=== PATIENT | female | born 1980 | race Caucasian/White ===

== ENCOUNTER 2019-11-08 07:00 | Emergency (ER) | payer OTHER, SELFPAY ==
--- NOTE | ~2019-11-08 | CT_ITS ---
EXAMINATION: CT abdomen pelvis w con DATE: 11/08/2019 08:38 INDICATION: Left lower abdominal pain TECHNIQUE: Computed tomography (CT) of the abdomen and pelvis was performed with 100 cc Omnipaque 350 intravenous contrast. Automated exposure control and iterative reconstruction technique were employe d. Exam dose: 366.56 mGy-cm total exam DLP. COMPARISON: None. FINDINGS: No infiltrate or consolidation or mass density is evident in the lower lung zones. Normal h eart size. No pericardial or pleural effusion. The liver, gallbladder, bile ducts, spleen, pancreas and pancreatic duct are unremarkable. Normal mor phology of the adrenal glands. No renal mass lesion or urinary tract calculus or hydroureteronephrosis. The urinary bladder is unrem arkable. 2.4 cm left ovarian cyst. The uterus measures up to 11.2 cm height, 5.2 cm maximal AP dimension. 2.5 cm calcified anterolateral right fundic uterine fibroid. Smaller fibroids are suggested. An IUD is noted within the uterus. There is pericolic fat stranding along virtually the entire course of the descending colon with assoc iated thickening of the adjacent lateral conal fascia. Epiploic appendagitis is suggested. Differenti al diagnosis includes most likely infectious or inflammatory colitis versus diverticulitis; however, no definite diverticula are demonstrated. The appendix is not visualized; there is no CT evidence of appendicitis. Normal caliber of the abdominal aorta. No intraperitoneal or retroperitoneal or pelvic mass lesion or adenopathy or ascites. Very small fat-containing umbilical hernia. Included skeletal structures are unremarkable. IMPRESSION: Epiploic appendagitis of descending colon is suggested; this is usually a self limited a nd resolved spontaneously. Differential diagnosis is given above. Uterine fibroids; IUD within uterus 2.5 cm left ovarian cyst Reviewed, dictated and finalized at [facility]. Reviewed, dictated and finalized at [facility]. IMPRESSION: Epiploic appendagitis of descending colon is suggested; this is us ually a self limited and resolved spontaneously. Differential diagnosis is give n above. Uterine fibroids; IUD within uterus 2.5 cm left ovarian cyst
[2019-11-08 07:07] VITALS: BP 120/58; PULSE 97; RESP 18; TEMP 36.8; O2SAT 98
--- NOTE | 2019-11-08 07:15 | ED.ABDPAIN ---
HPI - Abdominal Pain General Chief Complaint: Abdominal Pain Stated Complaint: left flank pain Time Seen by Provider: 11/08/19 07:06 Source: patient Mode of arrival: ambulatory Limitations: no limitations History of Present Illness HPI narrative: This patient is a 38 year old female who presents for evaluation of left lower abdominal pain starting yesterday. This pain has been constant and it is worse when she walks or moves. She has associated nausea and bloating. She also reports increase in bowel movements since her pain. She rates pain 6/10. She denies taking any medication for her pain. MD elicited complaint: abdominal pain Onset (ago): day(s) (1) Pain Consistency: constant Location: LLQ Radiation: none Migration to: no migration Relieving factors: movement Related Data Allergies Allergy/AdvReac Type Severity Reaction Status Date / Time No Known Allergies Allergy Verified 11/08/19 07:15 Review of Systems Review of Systems: All systems reviewed & are unremarkable except as noted in HPI and below Constitutional: Constitutional: Denies chills and Denies fever(s) Gastrointestinal: Gastrointestinal: Reports abdominal pain, Reports bloating, Reports nausea and Denies vomiting Genitourinary: Genitourinary: Denies hematuria, Denies nocturia, Denies dysuria and Denies flank pain Musculoskeletal: Musculoskeletal: Denies back pain PMFSH Past Medical History Medical History Chronic pain IUD (intrauterine device) in place Surgical History Surgical History (Updated 11/08/19 @ 07:16 by Aubrie Fuentes MD) H/O shoulder surgery Hx of appendectomy Social History Social History (Updated 11/08/19 @ 07:16 by Aubrie Fuentes MD) Smoking status: Never smoker Exam Narrative: Exam Narrative: GENERAL: Well-appearing, well-nourished, and in no acute distress. HEAD: Normocephalic, atraumatic EYES: PERRLA and EOMI, conjunctiva clear without discharge THROAT:Mucous membranes moist NECK: Supple, RESPIRATORY: No respiratory distress, Airway patent, Respirations non-labored, Clear to auscultation without rales, rhonchi or wheeze HEART: Regular rate and rhythm. No murmur heard. Normal peripheral pulses. ABDOMEN: Soft, LLQ tenderness, nondistended, normal active bowel sounds. No masses. No rebound or guarding, No organomegaly. EXTREMITIES: No edema, normal strength with full range of motion. SKIN: Warm, dry, normal color without rash NEURO: Alert and oriented x3. CN 2-12 grossly intact. No focal deficits. PSYCH: Normal mood and affect. Course Reevaluation(s) Reevaluation #1: I have discussed with patient that labs were unremarkable other than abnormal UA. She has no urinary symptoms and there are many squamous. Patient reported frequent formed bowel movements so I think it is unlikely colitis. Her pain may be due to ovarian cyst, epiploic appendagitis or diverticulitis. I have discussed I will given referral to new PCP and [facility] [employer]. She will be started on antibiotics. Date: 11/08/19 Time: 09:06 Vital Signs Vital signs: Vital Signs Temperature 98.2 F 11/08/19 07:07 Pulse Rate 97 11/08/19 07:07 Respiratory Rate 18 11/08/19 07:07 Blood Pressure 120/58 L 11/08/19 07:07 Pulse Oximetry 98 11/08/19 07:07 Temperature 98.2 F 11/08/19 07:07 Pulse Rate 70 11/08/19 09:22 Respiratory Rate 18 11/08/19 09:22 Blood Pressure 123/78 11/08/19 09:22 Pulse Oximetry 99 11/08/19 09:22 MDM - Abdominal Pain Lab Data Attestation: I reviewed the patient's lab results. Result diagrams: 11/08/19 07:24 11/08/19 07:24 Labs: Lab Results 11/08/19 11/08/19 11/08/19 Range/Units 07:24 07:24 07:24 WBC 7.9 (4.5-10.0) K/mm3 RBC 4.30 (4.2-5.4) M/mm3 Hgb 14.0 (12.0-15.0) g/dL Hct 39.9 (37.0-47.0) % MCV 92.8 (80-100) fl MCH 32.6 (26-34) pg MCHC 35.1 (32-36) g/dl RDW 12.4 (11.5-14.5) % Plt Count 202 (150-375) k/m
[2019-11-08] MEDS: LACTATED RINGERS 1,000 ML 999 ML IV CONT (07:26)
[2019-11-08] MEDS: ONDANSETRON INJ 4 MG/2 ML VIAL IV PUSH (07:27)
[2019-11-08 07:37] LABS: Basophils Percent Auto 0.4 % (0.2-1.2); Eosinophils Absolute Auto 0.2 K/mm3 (0-0.3); Eosinophils Percent Auto 3.1 % (0-4.4); Hematocrit 39.9 % (37.0-47.0); Immature Granulocyte Absolute 0.02 K/mm3 (0.00-0.031); Immature Granulocyte Percent A 0.3 % (0-0.5); Lymphocytes Absolute Auto 1.96 K/mm3 (0.9-3.2); Lymphocytes Percent Auto 24.9 % (18.3-44.2); Mean Corpuscular HGB Conc 35.1 g/dl (32-36); Mean Corpuscular Hemoglobin 32.6 pg (26-34); Mean Corpuscular Volume 92.8 fl (80-100); Mean Platelet Volume 12.2 fl (7.4-10.4); Monocytes Absolute Auto 0.6 K/mm3 (0.1-0.6); Monocytes Percent Auto 8.1 % (2.6-8.5); Neutrophils Percent Auto 63.2 % (45.5-73.1); Platelet Count Result 202 k/mm3 (150-375); Red Cell Distribution Width 12.4 % (11.5-14.5); White Blood Count 7.9 K/mm3 (4.5-10.0)
[2019-11-08 07:41] LABS: Add Urine Microscopic? YES; Appearance Urine Clear (Clear); Bacteria Urine Trace /hpf; Bilirubin Urine Negative (Negative); Blood Urine 1+ (Negative); Color Urine Yellow (Yellow); Glucose Urine UA Negative (Negative); Ketones Urine Negative (Negative); Leukocyte Esterase Ur 3+ LEU/UL (Negative); Nitrate Urine Negative (Negative); Protein Urine Negative (Negative); Specific Grav Ur 1.015 (1.001-1.035); Squamous Epithelial Cell Urine Many /hpf (Few); Urobilinogen Urine Negative mg/dL (<2.0); WBC Urine 31-50 /hpf
[2019-11-08 08:07] LABS: Alanine Aminotransferase 7 U/L (4-35); Albumin Level 4.1 g/dL (3.5-5.1); Alkaline Phosphatase 50 U/L (38-126); Anion Gap 10.7 mmol/L (7-16); Aspartate Amino Transferase 14 U/L (14-36); Bilirubin,Total 0.5 mg/dL (0.2-1.3); Blood Urea Nitrogen 11 mg/dL (7-17); Calcium 8.7 mg/dL (8.4-10.2); Carbon Dioxide 24 mmol/L (22-30); Chloride 107 mmol/L (98-107); Estimated CRCL calculation 59 ml/min; Estimated Glomerular Filt Rate > 60; Glucose 100 mg/dL (65-105); Lipase 112 U/L (23-300); Potassium 3.7 mmol/L (3.4-5.0); Sodium 138 mmol/L (137-145)
[2019-11-08 09:22] VITALS: BP 123/78; PULSE 70; RESP 18; O2SAT 99
== END 2019-11-08 09:24 | disposition home or self-care (01) ==
PROVIDERS: Emergency Provider General Practice
DX: N83.202 Unspecified ovarian cyst, left side (principal); D25.9 Leiomyoma of uterus, unspecified; K63.89 Other specified diseases of intestine; R82.998 Other abnormal findings in urine; Z97.5 Presence of (intrauterine) contraceptive device
CPT/HCPCS: 36415; 74177; 80053; 81001; 81025; 83690; 85025; 87086; 96361; 96374; 96375; 99284; J0131; J2405; J7120; Q9967

== ENCOUNTER 2020-01-28 00:34 | Outpatient (CLI) | payer OTHER, SELFPAY ==
[2020-01-28 18:39] LABS: SARS-CoV-2 RNA PCR Negative
== END 2020-01-28 00:35 | disposition home or self-care (01) ==
LOC: ANHCOVIDDT 00:34
PROVIDERS: PCP Family Medicine; Visit Provider Internal Medicine Gastroenterology
DX: Z01.812 Encounter for preprocedural laboratory examination (principal); Z20.828 Contact with and (suspected) exposure to other viral communicable diseases
CPT/HCPCS: 87635; C9803; U0003

== ENCOUNTER 2020-01-30 00:58 | Day surgery (SDC) | payer OTHER, SELFPAY ==
[2020-01-15 15:08] VITALS: BMI 24.8
[2020-01-30 09:20] VITALS: BP 119/60; PULSE 83; RESP 16; TEMP 36.7; O2SAT 99
[2020-01-30] MEDS: LACTATED RINGERS 1,000 ML 150 ML IV CONT (09:27)
--- NOTE | 2020-01-30 09:50 | WPDGICN ---
Assessment and Plan Assessment and plan (1) Abdominal pain: Code(s): R10.9 - Unspecified abdominal pain Status: Acute Assessment and Plan: Patient with persistent left lower quadrant abdominal pain. Clinically suspicious for diverticulitis. CT scan suggest epiploic appendagitis. No response to empiric antibiotics. Because of ongoing pain a colonoscopy will be performed high-fiber diet is advised further recommendations will be given after endoscopy. GI Consult Note Consult date/time: 01/30/20 09:50 HPI: Alena Bonilla is a 39 year old female Seen at the request of Dr Parul Ng. patient complains of pain that began in September of 2019 and has persisted over last 3 months. Pain is Prieb Jay it leave the left lower quadrant of the abdomen. She initially went to the emergency room was treated empirically with antibiotics. She currently complains of some fecal urgency with loose stools. A CT scan of the abdomen was performed which revealed possible epiploic appendagitis. She does have an ovarian cyst but this on the right side. Her family history is noncontributory she denies any blood in her stools. Her pain has persisted but improved gradually. After being seen in the office was treated with Cipro for 1 week with no specific change in symptoms. Review of Systems Review of Systems: All systems reviewed & are unremarkable except as noted in HPI and below PMFSH Past Medical History Medical History Chronic pain Healthy adult IUD (intrauterine device) in place Surgical History Surgical History H/O shoulder surgery Hx of appendectomy Social History Social History Smoking status: Never smoker Alcohol intake: never Substance use: never Substance use type: does not use Living arrangements: with family Spiritual care concerns: No Meds Home Medications and Allergies Home Medications Medication Instructions Recorded Confirmed Type ciprofloxacin 500 mg PO BID 01/16/20 01/16/20 History Allergies Allergy/AdvReac Type Severity Reaction Status Date / Time No Known Allergies Allergy Verified 01/16/20 14:41 Vital Signs Vital Signs - 24 hr 01/30/20 09:20 Temperature 98.0 F Pulse Rate 83 Respiratory Rate 16 Blood Pressure 119/60 Pulse Oximetry 99 Exam Narrative: Exam Narrative: Physical exam reveals patient to be alert. Vital signs stable. HEENT exam unremarkable. Lungs are clear to auscultation and percussion. Heart is without murmur or extra sounds. Abdominal exam bowel sounds present soft mild tenderness in left lower quadrant persists. Digital external rectal exam normal. No masses noted.
--- NOTE | 2020-01-30 09:51 | WPDANESEPPF ---
Anes - Initial Pre Proc Eval Procedure: Operation Date: 01/30/20 10:30 Proposed Procedures p Colonoscopy - German Becerril MD Date/Time: 01/30/20 09:51 Surgeon: German Becerril MD Pre Op Diagnosis: LLQ pain Patient Data Age: 39 Gender: F Height: 5 ft 3 in Weight: 64 kg Last Vital Signs Temp 98.0 F 01/30/20 09:20 Pulse 83 01/30/20 09:20 Resp 16 01/30/20 09:20 BP 119/60 01/30/20 09:20 Pulse Ox 99 01/30/20 09:20 Allergies Allergy/AdvReac Type Severity Reaction Status Date / Time No Known Allergies Allergy Verified 01/16/20 14:41 Home Medications Medication Instructions Recorded Confirmed Type ciprofloxacin 500 mg PO BID 01/16/20 01/16/20 History Patient hx anesthesia problems: none Family hx anesthesia problems: none PMFSH Past Medical History Medical History Chronic pain Healthy adult IUD (intrauterine device) in place Surgical History Surgical History H/O shoulder surgery Hx of appendectomy Social History Social History Smoking status: Never smoker Alcohol intake: never Substance use: never Substance use type: does not use Living arrangements: with family Spiritual care concerns: No Anes - Eval Final PreProcedure Day of Procedure 01/30/20 09:51 Patient weight: normal Heart: regular rate and rhythm Lungs: clear to auscultation Airway: Mallampati scale class II Neurological: alert and oriented Last oral intake: >/= 8 hours ASA classification: I Emergent: no Anesthetic plan: proceed Anesthesia type and monitoring: general GIVS and standard monitoring Informed Consent: The patient's anesthetic plan and its attendant risks and benefits were discussed with the patient/family/POA. Questions were solicited and answers provided to the satisfaction of the patient/family/POA.
[2020-01-30 10:40] VITALS: BP 84/45; PULSE 82; RESP 16; O2SAT 97
[2020-01-30 10:50] VITALS: BP 87/50; PULSE 74; RESP 16; O2SAT 97
[2020-01-30 11:00] VITALS: BP 104/70; PULSE 76; RESP 16; O2SAT 97
== END 2020-01-30 11:27 | disposition home or self-care (01) ==
PROVIDERS: PCP Family Medicine; Visit Provider Internal Medicine Gastroenterology
PROC: 0DJD8ZZ Inspection of Lower Intestinal Tract, Via Natural or Artificial Opening Endoscopic (ICD-10-PCS; CPT 45378; principal; 2020-01-30 10:30)
DX: R10.12 Left upper quadrant pain (principal); K64.8 Other hemorrhoids
CPT/HCPCS: 45378; J2704; J7120

== ENCOUNTER 2021-03-17 11:03 | Emergency (ER) | payer OTHER, SELFPAY ==
[2021-03-17] VITALS (12 sets, daily range): BP systolic 114–133; BP diastolic 67–85; PULSE 64–88; RESP 12–17; O2SAT 98–100
--- NOTE | ~2021-03-17 | CT_ITS ---
EXAMINATION: CT abdomen pelvis w con EXAM DATE: 03/17/2021 16:30 INDICATION: Abdominal pain, right lower quadrant pain for one week. Bloating and cramps. TECHNIQUE: Spiral CT of the abdomen and pelvis was performed following intravenous injection of 100 m L Omnipaque 350. Axial, coronal and sagittal images of the abdomen and pelvis were reviewed. The do se-length product (DLP) for this examination was 247.08 mGy-cm. The exposure was tailored according to patient size (auto mA exposure control), and iterative reconstruction (ASIR) was used as additiona l dose reduction technique. Comparison is made to prior examination from 11/08/2019. FINDINGS: The liver, spleen, adrenal glands and pancreas are unremarkable. Gallbladder is unremarkab le. No biliary obstruction. Portal and splenic veins are patent. Kidneys enhance symmetrically. T here is no hydronephrosis. Uterus is anteverted with IUD centrally positioned. Peripherally calcified low density centrally partially exophytic fibroid measuring 2.7 cm. The bladder is unremarkable. Th ere is no retroperitoneal or pelvic lymphadenopathy. The appendix is not positively visualized. There is no pericecal inflammatory change to suggest appe ndicitis. The stomach and small bowel are unremarkable. There is expected amount of colonic stool. No free intraperitoneal gas. The heart is normal in size. There are no pericardial or pleural e ffusions. The lung bases are unremarkable. The bones are unremarkable. IMPRESSION: 1. Fibroid uterus. 2. No acute findings Reviewed, dictated and finalized at [facility]. PPER
[2021-03-17] MEDS: SODIUM CHLORIDE 0.9% IV 1,000 ML 999 ML IV CONT (14:49)
--- NOTE | 2021-03-17 15:08 | ED.ABDPAIN ---
HPI - Abdominal Pain General Chief Complaint: Abdominal Pain <Joselyn Ruiz MD - Last Filed: 03/17/21 16:33> Stated Complaint: pain from fibroids <Joselyn Ruiz MD - Last Filed: 03/17/21 16:33> Time Seen by Provider: 03/17/21 14:10 <Joselyn Ruiz MD - Last Filed: 03/17/21 16:33> Source: patient and RN notes reviewed <Joselyn Ruiz MD - Last Filed: 03/17/21 16:33> Mode of arrival: ambulatory <Joselyn Ruiz MD - Last Filed: 03/17/21 16:33> Limitations: no limitations <Joselyn Ruiz MD - Last Filed: 03/17/21 16:33> History of Present Illness HPI narrative: Patient presents with right lower back pain radiating to right lower quadrant that started 1 month ago, got worse over the last 2 weeks, radiating to the back of the buttock and right thigh. Patient denies any trauma, fever, chills, nausea, vomiting, diarrhea, constipation, vaginal bleeding or discharge. Patient was seen at urgent care last week and was diagnosed of uterine fibroid. Patient have IUD, denies smoking, drinking or using drugs. Pain worse when she bends over, little better with warm compresses on the lower back and 800 mg of ibuprofen. History of rotator cuff surgery after injury 2 years ago <Joselyn Ruiz MD - Last Filed: 03/17/21 16:33> Related Data Home Medications: Home Medications Medication Instructions Recorded Confirmed ibuprofen 800 mg PO TID PRN 03/17/21 <Joselyn Ruiz MD - Last Filed: 03/17/21 16:33> Allergies/Adverse Reactions: Allergies Allergy/AdvReac Type Severity Reaction Status Date / Time No Known Allergies Allergy Verified 03/17/21 14:15 <Joselyn Ruiz MD - Last Filed: 03/17/21 16:33> Review of Systems Review of Systems: CONSTITUTIONAL: Denies fever, chills, or sweats. EYES: Denies visual changes, redness, or discharge. ENT: Denies rhinorrhea, congestion, sore throat, or otalgia. CARDIOVASCULAR: Denies chest pain, palpitations, or edema. RESPIRATORY: Denies cough or dyspnea. GASTROINTESTINAL: Denies abdominal pain, nausea, vomiting, or diarrhea. GENITOURINARY: Denies dysuria or hematuria. SKIN: Denies rash or itching. MUSCULOSKELETAL: Right lower back pain NEUROLOGIC: Denies headache, numbness, or weakness. PSYCHIATRIC: Denies anxiety or depression. <Joselyn Ruiz MD - Last Filed: 03/17/21 16:33> [facility] Past Medical History Medical History: Medical History Chronic pain Healthy adult IUD (intrauterine device) in place <Joselyn Ruiz MD - Last Filed: 03/17/21 16:33> Surgical History Surgical History: Surgical History H/O shoulder surgery Hx of appendectomy <Joselyn Ruiz MD - Last Filed: 03/17/21 16:33> Social History Social History: Social History Smoking status: Never smoker Alcohol intake: never Substance use: never Substance use type: does not use Spiritual care concerns: No <Joselyn Ruiz MD - Last Filed: 03/17/21 16:33> Exam Narrative: General appearance: Well-developed, well-nourished Skin: Normal color Head: Normocephalic, nontraumatic Eyes: Clear conjunctiva ENT: Oropharynx normal, ears normal, nose normal Neck: Supple, nontender Chest and respiratory: Airway patent, no respiratory distress, no accessory muscle use Heart: Regular rate/rhythm Abdomen: Moderate tenderness right lower quadrant, quiet bowel sounds, no mass or organomegaly Vascular: Normal peripheral pulses, normal capillary refill. Musculoskeletal: Normal range of motion, nontender back, mild tenderness mid lower back and right buttock with palpation, no bruises, no swelling, no rash Neurologic: Alert and oriented ?3, TENA[employer] is normal as tested, no gross motor deficit. Right straight leg raising test is negative
[2021-03-17 15:17] LABS: Basophils Percent Auto 0.4 % (0.2-1.2); Eosinophils Absolute Auto 0.2 K/mm3 (0-0.3); Eosinophils Percent Auto 2.3 % (0-4.4); Hematocrit 41.9 % (37.0-47.0); Hemoglobin 14.4 g/dL (12.0-15.0); Immature Granulocyte Absolute 0.02 K/mm3 (0.00-0.031); Immature Granulocyte Percent A 0.3 % (0-0.5); Lymphocytes Absolute Auto 2.51 K/mm3 (0.9-3.2); Lymphocytes Percent Auto 34.5 % (18.3-44.2); Mean Corpuscular HGB Conc 34.4 g/dl (32-36); Mean Corpuscular Hemoglobin 32.7 pg (26-34); Mean Platelet Volume 11.8 fl (7.4-10.4); Monocytes Absolute Auto 0.5 K/mm3 (0.1-0.6); Monocytes Percent Auto 7.4 % (2.6-8.5); Neutrophils Percent Auto 55.1 % (45.5-73.1); Platelet Count Result 190 k/mm3 (150-375); Red Blood Count 4.41 M/mm3 (4.2-5.4); Red Cell Distribution Width 11.9 % (11.5-14.5); White Blood Count 7.3 K/mm3 (4.5-10.0)
[2021-03-17 15:23] LABS: Add Urine Microscopic? YES; Appearance Urine Clear (Clear); Bilirubin Urine Negative (Negative); Blood Urine Negative (Negative); Color Urine Yellow (Yellow); Glucose Urine UA Negative (Negative); Ketones Urine Negative (Negative); Leukocyte Esterase Ur 1+ LEU/UL (Negative); Mucus Urine Rare /lpf; Nitrate Urine Negative (Negative); Protein Urine Negative (Negative); Specific Grav Ur 1.021 (1.001-1.035); Squamous Epithelial Cell Urine Few /hpf (Few); Urobilinogen Urine Negative mg/dL (<2.0); WBC Urine 0-3 /hpf
[2021-03-17 15:37] LABS: Alanine Aminotransferase 9 U/L (4-35); Albumin Level 4.6 g/dL (3.5-5.1); Alkaline Phosphatase 47 U/L (38-126); Anion Gap 8 mmol/L (8-16); Aspartate Amino Transferase 17 U/L (14-36); Bilirubin,Total 0.8 mg/dL (0.2-1.3); Blood Urea Nitrogen 12 mg/dL (7-17); Calcium 9.5 mg/dL (8.4-10.2); Carbon Dioxide 24 mmol/L (22-30); Chloride 105 mmol/L (98-107); Estimated CRCL calculation 55 ml/min; Estimated Glomerular Filt Rate > 60; Glucose 89 mg/dL (65-110); Lactic Acid Reflex 0.7 mmol/L (0.7-2.1); Lipase 100 U/L (23-300); Potassium 3.7 mmol/L (3.4-5.0); Sodium 137 mmol/L (137-145)
[2021-03-17] MEDS: HYDROmorphone HCL INJ (*CRX) 1 MG/ML SYR 0.5 MG IV PUSH (16:04)
[2021-03-17] MEDS: ONDANSETRON INJ 4 MG/2 ML VIAL IV PUSH (16:05)
== END 2021-03-17 17:30 | disposition home or self-care (01) ==
PROVIDERS: Emergency Medicine; Emergency Provider Emergency Medicine
DX: R10.9 Unspecified abdominal pain (principal); D25.9 Leiomyoma of uterus, unspecified; G89.29 Other chronic pain; Z97.5 Presence of (intrauterine) contraceptive device; Z90.89 Acquired absence of other organs
CPT/HCPCS: 36415; 74177; 80053; 81001; 81025; 83605; 83690; 85025; 96361; 96374; 96375; 99284; J1170; J2405; J7030; Q9967

== ENCOUNTER 2021-09-26 15:29 | Emergency (ER) | payer OTHER, SELFPAY ==
--- NOTE | ~2021-09-26 | CT_ITS ---
EXAMINATION: CT abdomen pelvis wo con DATE: 09/26/2021 16:42 INDICATION: abdomina pain TECHNIQUE: Computed tomography (CT) of the abdomen and pelvis was performed without intravenous contr ast. Automated exposure control and iterative reconstruction technique were employed. The dose-length product was 236.85 mGy-cm. COMPARISON: 03/17/2021 FINDINGS: Lower thorax: Unremarkable Liver: Normal. Biliary/Gallbladder: Gallbladder is normal. No bile duct dilation. Pancreas: No mass or duct dilation. Spleen: Normal. Adrenals:No mass. Kidneys: No mass, stone, or hydronephrosis. GI tract: No small or large bowel dilation. The appendix not visualized. Mesentery/Peritoneum: No ascites, mass, or free air. Retroperitoneum: No mass. Pelvis: Calcified uterine fibroids, otherwise pelvic organs are within normal limits. Soft Tissues: Soft tissues and body wall unremarkable. Bones: No acute osseous finding. IMPRESSION: No acute abdominopelvic process detected. Reviewed, dictated and finalized at [facility].
[2021-09-26 15:31] VITALS: BP 137/82; PULSE 86; RESP 20; TEMP 36.8; O2SAT 98
[2021-09-26 15:40] LABS: Basophils Percent Auto 0.3 % (0.2-1.2); Eosinophils Absolute Auto 0.1 K/mm3 (0-0.3); Eosinophils Percent Auto 2.3 % (0-4.4); Hemoglobin 12.9 g/dL (12.0-15.0); Immature Granulocyte Absolute 0.02 K/mm3 (0.00-0.031); Immature Granulocyte Percent A 0.3 % (0-0.5); Lymphocytes Absolute Auto 1.94 K/mm3 (0.9-3.2); Lymphocytes Percent Auto 32.4 % (18.3-44.2); Mean Corpuscular HGB Conc 35.8 g/dl (32-36); Mean Corpuscular Hemoglobin 32.3 pg (26-34); Mean Platelet Volume 11.4 fl (7.4-10.4); Monocytes Absolute Auto 0.6 K/mm3 (0.1-0.6); Monocytes Percent Auto 9.4 % (2.6-8.5); Neutrophils Absolute Auto 3.3 K/mm3 (1.3-6.7); Neutrophils Percent Auto 55.3 % (45.5-73.1); Platelet Count Result 204 k/mm3 (150-375); Red Cell Distribution Width 12.4 % (11.5-14.5)
[2021-09-26 15:45] LABS: Appearance Urine Slightly Cloudy (Clear); Bilirubin Urine 1+ (Negative); Blood Urine Negative (Negative); Color Urine Yellow (Yellow); Glucose Urine UA Negative (Negative); Ketones Urine 2+ mg/dL (Negative); Leukocyte Esterase Ur Trace LEU/UL (Negative); Nitrate Urine Negative (Negative); Protein Urine Negative (Negative); Specific Grav Ur >= 1.030 (1.001-1.035); Urobilinogen Urine 0.2 mg/dL (<2.0); pH Urine 5.5 (5.0-9.0)
[2021-09-26 15:49] LABS: Add Urine Microscopic? YES; Bacteria Urine Trace /hpf; Mucus Urine Few /lpf; RBC Urine 0-2 /hpf (0-2); Squamous Epithelial Cell Urine Many /hpf (Few); WBC Urine 0-3 /hpf
[2021-09-26 15:50] LABS: Alanine Aminotransferase 13 U/L (6-35); Albumin Level 4.4 g/dL (3.5-5.1); Alkaline Phosphatase 49 U/L (38-126); Anion Gap 11 mmol/L (8-16); Aspartate Amino Transferase 20 U/L (14-36); Bilirubin,Total 0.7 mg/dL (0.2-1.3); Blood Urea Nitrogen 12 mg/dL (7-17); Calcium 8.8 mg/dL (8.4-10.2); Carbon Dioxide 24 mmol/L (22-30); Chloride 105 mmol/L (98-107); Estimated Glomerular Filt Rate > 60; Glucose 91 mg/dL (65-110); Lipase 123 U/L (23-300); Potassium 3.7 mmol/L (3.4-5.0); Sodium 140 mmol/L (137-145)
--- NOTE | 2021-09-26 16:28 | ED.ABDPAIN ---
HPI - Abdominal Pain General Chief Complaint: Abdominal Pain Stated Complaint: Abd pain History of Present Illness HPI narrative: Pt presents with numerous episodes of diarrhea over last 5 days. Pt denies fever or vomiting. Pt says her stools were nearly black two days ago but now more brown and watery Related Data Home Medications Medication Instructions Recorded Confirmed ibuprofen 800 mg tablet 800 mg PO TID PRN Abdominal 03/17/21 05/30/21 Discomfort Allergies Allergy/AdvReac Type Severity Reaction Status Date / Time No Known Allergies Allergy Verified 05/30/21 09:28 Review of Systems Review of Systems: All systems reviewed & are unremarkable except as noted in HPI and below PMFSH Past Medical History Medical History Chronic pain Healthy adult IUD (intrauterine device) in place Surgical History Surgical History H/O shoulder surgery History of colposcopy (~04/11/21) Hx of appendectomy Social History Social History Smoking status: Never smoker Alcohol intake: never Substance use: never Substance use type: does not use Spiritual care concerns: No Exam Const: General: healthy appearing, no acute distress and alert Nutritional Appearance: well nourished Orientation/consciousness: patient oriented x3 Limitations: no limitations HENMT: Mouth: Yes Normal oral and palatal mucosa present Resp: Effort & Inspection: normal respiratory effort Auscultation: clear to auscultation bilaterally Cardio: Rate: regular rate Rhythm: regular rhythm GI: GI Palp: Yes Soft to palpation and Yes Tenderness to palpation present (GI) (epigastric) Auscultation: normal bowel sounds Rectal Exam: normal sphincter tone Other: heme negative brown stool Skin: General skin exam: normal color Rashes: no rashes Neuro: General: patient oriented x3, moves all extremities, no meningeal signs and no focal motor deficits Cranial nerves: Yes Nystagmus not present Speech: normal speech Gait exam (Neuro): Normal gait present Extrem: General: normal to inspection and no clubbing, cyanosis or edema Psych: Mental Status: mental status grossly normal Affect: normal affect Attitude: cooperative Course Vital Signs Vital signs: Vital Signs Temperature 98.3 F 09/26/21 15:31 Pulse Rate 86 09/26/21 15:31 Respiratory Rate 20 09/26/21 15:31 Blood Pressure 137/82 09/26/21 15:31 Pulse Oximetry 98 09/26/21 15:31 Oxygen Delivery Room Air 09/26/21 15:31 Temperature 98.3 F 09/26/21 15:31 Pulse Rate 86 09/26/21 15:31 Respiratory Rate 20 09/26/21 15:31 Blood Pressure 137/82 09/26/21 15:31 Pulse Oximetry 98 09/26/21 15:31 Oxygen Delivery Room Air 09/26/21 15:31 MDM - Abdominal Pain Lab Data Result diagrams: 09/26/21 15:34 09/26/21 15:34 Labs: Lab Results 09/26/21 09/26/21 09/26/21 Range/Units 15:34 15:34 15:38 WBC 6.0 (4.5-10.0) K/mm3 RBC 4.00 L (4.2-5.4) M/mm3 Hgb 12.9 (12.0-15.0) g/dL Hct 36.0 L (37.0-47.0) % MCV 90.0 (80-100) fl MCH 32.3 (26-34) pg MCHC 35.8 (32-36) g/dl RDW 12.4 (11.5-14.5) % Plt Count 204 (150-375) k/mm3 MPV 11.4 H (7.4-10.4) fl Immature Gran % (Auto) 0.3 (0-0.5) % Neut % (Auto) 55.3 (45.5-73.1) % Lymph % (Auto) 32.4 (18.3-44.2) % Centre % (Auto) 9.4 H (2.6-8.5) % Eos % (Auto) 2.3 (0-4.4) % Baso % (Auto) 0.3 (0.2-1.2) % Lymph # (Auto) 1.94 (0.9-3.2) K/mm3 Centre # (Auto) 0.6 (0.1-0.6) K/mm3 Eos # (Auto) 0.1 (0-0.3) K/mm3 Baso # (Auto) 0.0 (0.0-0.1) K/mm3 Abs Immat Gran (auto) 0.02 (0.00-0.031) K/mm3 Absolute Neuts (auto) 3.3 (1.3-6.7) K/mm3 Absolute Nucleated RBC 0.0 (0.0-0.012) K/mm3 Nucleated RBC % 0.0 (0.0-0.2) % Sodium 140 (137-145) mmol/L Potassium 3.7 (3.4-5.0) mmol/L Ch
--- NOTE | 2021-09-26 16:56 | PC.NURSE ---
Patient unable to void at this time.
[2021-09-26] MEDS: SODIUM CHLORIDE 0.9% IV 1,000 ML 999 ML IV CONT (17:17)
== END 2021-09-26 18:53 | disposition home or self-care (01) ==
PROVIDERS: Emergency Provider Emergency Medicine
DX: K52.9 Noninfective gastroenteritis and colitis, unspecified (principal)
CPT/HCPCS: 36415; 74176; 80053; 81001; 81025; 83690; 85025; 96360; 96361; 99284; J7030

== ENCOUNTER 2022-01-16 01:43 | Day surgery (SDC) | payer OTHER, SELFPAY ==
[2022-01-06 14:32] VITALS: BMI 24.0
--- NOTE | 2022-01-06 14:37 | PC.NURSE ---
Report to the Outpatient Waiting Room, entrance under the green pavilion located off [facility], at time _0800_ on date _[id number]_. OR Time: _1000_. Time changes happen often and if your time is changed the preop area will call you the afternoon before. - You and your visitor will be asked to self-screen and do not enter if you have any COVID symptoms. - Only one visitor and NO children visitors are allowed at this time. - The patient visitor is requested to leave or wait in car when not with patient due to restrictions. - A mask is required within the hospital. Patients may have clear liquids (water, carbonated beverages, clear teas, apple juice) until 3 hours prior to surgery with a maximum of 20 ounces. - No food from midnight until time of surgery Take the following medications with a SIP of water the morning of surgery: ____None Medications to discontinue per physician None Date to take last dose Please no make-up, nail kazakh, hairspray, perfume, deodorant, or body powder the day of surgery. No jewelry (including any body piercings) or valuables the day of surgery, leave them at home. Please take a shower or bath the night before, or the morning of, surgery with an antibacterial soap. Wear comfortable, loose fitting clothing. - Jewelry must be removed prior to entering the operating room. Rings and piercings that are not removed may be cut off. - The hospital will not accept responsibility for valuables. - Please leave all valuables, including medications, at home the day of surgery. If you are going home after surgery, a licensed school bus driver/teacher assistant must drive you home. - NO public transportation without another adult. - We recommend that an adult stay with you for 24 hours following discharge. - We also recommend that you do not drive, make important decision, drink alcoholic beverages, or take any drugs that were not prescribed by your health care provider for at least 24 hours after your discharge time. Follow any additional instructions given to you from your surgeon. If you or anyone in your household have experienced Covid symptoms in the past week, please notify your surgeon or the nurse liaison at the phone number below for possible testing. Telephone instructions given to _Patient___and asked if any additional questions and then verbalized understanding. Patient advised to call surgeon office or pre surgery nurse liaison [phone] if any additional questions.
--- NOTE | 2022-01-13 15:15 | P.PNAN_ITS ---
Anes - Initial Pre Proc Eval Procedure: Operation Date: 01/16/22 10:00 Proposed Procedures p Hysteroscopy with Dilation and Curettage - Cindy Murray MD Date/Time: 01/13/22 15:15 Surgeon: Cindy Murray MD Pre Op Diagnosis: Endometrial Hyperplasia Patient Data Age: 41 Gender: F Height: 1.6 m Weight: 61.4 kg Allergies Allergy/AdvReac Type Severity Reaction Status Date / Time No Known Allergies Allergy Verified 01/16/22 08:48 Home Medications Medication Instructions Recorded Confirmed Type No Home Medications 01/06/22 01/16/22 History Patient hx anesthesia problems: none Family hx anesthesia problems: none Results Review: All pre-operative results and documents have been reviewed as part of the pre- operative evaluation. PMFSH Past Medical History Medical History Chronic pain Healthy adult IUD (intrauterine device) in place Surgical History Surgical History H/O shoulder surgery History of colposcopy (~04/11/21) Hx of appendectomy Social History Social History Smoking status: Never smoker Alcohol intake: never Substance use: never Substance use type: does not use Living arrangements: with family Spiritual care concerns: No Anes - Eval Final PreProcedure Day of Procedure 01/13/22 15:15 Patient weight: normal Heart: regular rate and rhythm Lungs: clear to auscultation Airway: Mallampati scale class II Neurological: alert and oriented Last oral intake: >/= 8 hours ASA classification: I Emergent: no Anesthetic plan: proceed Anesthesia type and monitoring: general GIVS and standard monitoring Results Review: All pre-operative results and documents have been reviewed as part of the pre- operative evaluation. Informed Consent: The patient's anesthetic plan and its attendant risks and benefits were discussed with the patient/family/POA. Questions were solicited and answers provided to the satisfaction of the patient/family/POA.
--- NOTE | 2022-01-15 20:04 | P.HP_ITS ---
H&P: HPI History of Present Illness Date/Time: 01/15/22 20:04 Chief Complaint: AUB Narrative: Alena is a 41yo P1001, who presents for HSC/D&C. She had a Mirena IUD in place since ~[id number]. She reports her periods used to be very heavy and painful. Since IUD placement; she reports no cycles. Since this summer, she has continued having worse and worse pain. She has back pain that radiates down her legs and towards the flank. She has had 2 CT's performed at [facility]. She was found to have an enlarged fibroid uterus. She can no longer stand the pain. She is taking ibuprofen w/o relief. She needs to work, but sometimes has to skip due to the pain. With all the pain, she has also started having some irregular spotting and discharge. Pain is located in the right side; has a h/o appendectomy already. Seriously considering hysterectomy due to the pain. Pap was obtained and resulted ASCUS/HPV +. Colpo was performed and showed BENOIT 1. EMB showed FEATURES SUGGESTIVE OF PROGESTIN-TREATED ENDOMETRIAL HYPERPLASIA, NO ATYPIA. Review of Systems Review of Systems: All systems reviewed & are unremarkable except as noted in HPI and below (HPI) PMFSH Past Medical History Medical History Chronic pain Healthy adult IUD (intrauterine device) in place Surgical History Surgical History H/O shoulder surgery History of colposcopy (~04/11/21) Hx of appendectomy Social History Social History Smoking status: Never smoker Alcohol intake: never Substance use: never Substance use type: does not use Living arrangements: with family Spiritual care concerns: No Meds Home Medications and Allergies Home Medications Medication Instructions Recorded Confirmed Type No Home Medications 01/06/22 01/06/22 History Allergies Allergy/AdvReac Type Severity Reaction Status Date / Time No Known Allergies Allergy Verified 01/06/22 14:31 Exam Const: General: cooperative, healthy appearing, comfortable and no acute distress Resp: Effort & Inspection: normal respiratory effort Cardio: Rate: regular rate GI: Inspection: normal to inspection GI Palp: No abdominal tenderness and Yes Soft to palpation : Other: deferred to OR Skin: General skin exam: normal color Neuro: General: patient oriented x3 Psych: Appearance: grossly normal Affect: normal affect Attitude: cooperative Assessment and Plan Assessment and plan (1) Endometrial hyperplasia without atypia: Code(s): N85.00 - Endometrial hyperplasia, unspecified Status: Acute Plan - Proceed with hysteroscopy with dilation and curettage - Risks and benefits explained in detail
--- NOTE | 2022-01-16 07:02 | WPDHPUPDATE1 ---
History and Physical Update Update Date/Time: 01/16/22 07:02 History and Physical has been reviewed, including an updated exam of the patient. There are NO changes in the patient's condition. Risks, benefits, and alternatives have been discussed and questions answered. Patient agrees to proceed with procedure.
[2022-01-16 08:40] VITALS: BP 106/58; PULSE 79; RESP 16; TEMP 36.4; O2SAT 98
[2022-01-16] MEDS: ACETAMINOPHEN 500 MG TABLET 1000 MG PO (09:00)
[2022-01-16] MEDS: LACTATED RINGERS 1,000 ML 30 ML IV CONT (09:07)
--- NOTE | 2022-01-16 09:54 | SUR.PREOP ---
pt informed delay in procedure.
[2022-01-16 12:28] VITALS: BP 126/85; PULSE 83; RESP 15; O2SAT 97
--- NOTE | 2022-01-16 12:29 | P.OP_ITS ---
Procedure Note - Detailed Date of Procedure 01/16/22 Pre-op Diagnosis Endometrial Hyperplasia Post-op Diagnosis Same Procedure Performed Hysteroscopy with dilation and curettage Surgeon Cindy Murray MD Anesthesia MAC Indications EMB performed for AUB w/ Mirena IUD in place showed endometrial hyperplasia with out atypia Findings Uterus sounded to 7cm; bilateral tubal ostia visualized, thickened polypoid endometrium noted on posterior wall of uterus, normal cervix Description of Procedure Alena was taken to the operating room where she was placed under conscious sedation. She was then prepped and draped in the usual sterile fashion the dorsal lithotomy position with her legs in low Tejas stirrups. A time-out was performed no preoperative antibiotics were indicated. A bivalve speculum was placed within the vagina where the cervix was easily identified. The anterior lip of the cervix was grasped with single-tooth tenaculum. The uterus was sounded. The cervix was then serially dilated to allow for the hysteroscope. The hysteroscope was advanced into the uterine cavity with the above findings. Hysteroscope was removed. A curettage was then performed where a significant amount of tissue was removed until good uterine cry was noted. All instruments were then removed from the vagina. Sponge, lap, instrument, needle counts were correct at the end the procedure. Patient was taken to recovery in a stable condition with plans of same-day discharge home. Estimated Blood Loss 5 IV Fluids 700 Pathology Yes (endometrial currettings) Complications No immediate complications Condition Stable Disposition Same day [facility] Billing Surgery - Charge Forward: Surgery Billing
[2022-01-16 12:58] VITALS: BP 113/69; PULSE 77; RESP 16; O2SAT 99
[2022-01-16] MEDS: oxyCODONE HCL (*CRX) 5 MG TAB IR PO (13:17)
[2022-01-16 13:28] VITALS: BP 104/61; PULSE 68; RESP 16
[2022-01-16 13:58] VITALS: BP 107/61; PULSE 66; RESP 16
== END 2022-01-16 14:00 | disposition home or self-care (01) ==
PROVIDERS: Visit Provider Obstetrics & Gynecology
PROC: 0U5B8ZZ Destruction of Endometrium, Via Natural or Artificial Opening Endoscopic (ICD-10-PCS; CPT 58563; principal; 2022-01-16 10:00)
DX: N85.00 Endometrial hyperplasia, unspecified (principal); Z97.5 Presence of (intrauterine) contraceptive device; R10.2 Pelvic and perineal pain
CPT/HCPCS: 58558; 88305; A9270; J2250; J2704; J3010; J7030; J7120

== ENCOUNTER 2022-02-28 10:31 | Outpatient (CLI) | payer OTHER, SELFPAY ==
[2022-02-28 11:04] LABS: Basophils Percent Auto 0.3 % (0.2-1.2); Eosinophils Absolute Auto 0.2 K/mm3 (0-0.3); Eosinophils Percent Auto 2.5 % (0-4.4); Hematocrit 39.9 % (37.0-47.0); Hemoglobin 13.8 g/dL (12.0-15.0); Immature Granulocyte Absolute 0.02 K/mm3 (0.00-0.031); Immature Granulocyte Percent A 0.3 % (0-0.5); Lymphocytes Absolute Auto 2.08 K/mm3 (0.9-3.2); Mean Corpuscular HGB Conc 34.6 g/dl (32-36); Mean Corpuscular Hemoglobin 32.1 pg (26-34); Mean Corpuscular Volume 92.8 fl (80-100); Mean Platelet Volume 10.9 fl (7.4-10.4); Monocytes Absolute Auto 0.5 K/mm3 (0.1-0.6); Neutrophils Absolute Auto 3.4 K/mm3 (1.3-6.7); Neutrophils Percent Auto 54.9 % (45.5-73.1); Platelet Count Result 215 k/mm3 (150-375); Red Cell Distribution Width 12.2 % (11.5-14.5); White Blood Count 6.1 K/mm3 (4.5-10.0)
== END 2022-02-28 10:32 | disposition home or self-care (01) ==
LOC: ANHSURGERY 10:38
PROVIDERS: PCP Family Medicine Sports Medicine; Visit Provider Obstetrics & Gynecology
DX: N85.2 Hypertrophy of uterus (principal); Z01.818 Encounter for other preprocedural examination
CPT/HCPCS: 36415; 85025; 86850; 86900; 86901

== ENCOUNTER 2022-03-03 00:50 | Day surgery (SDC) | payer OTHER, SELFPAY ==
[2022-02-24 11:51] VITALS: BMI 23.9
--- NOTE | 2022-02-24 11:55 | PC.NURSE ---
Report to the Outpatient Waiting Room, entrance under the green pavilion located off [facility], at time 11:00 on date 03/03/22. Planned Procedure Time: 1:00. Time changes happen often and if your time is changed the preop area will call you the afternoon before. - You and your visitor will be asked to self-screen and do not enter if you have any COVID symptoms. - We encourage only one visitor and NO visitors under age 16 are allowed at this time. Your visitor will receive communication by the phone number that is given day of service. - The patient visitor is requested to social distance or may leave the building when not with patient due to restrictions. - A mask is OPTIONAL within the hospital. Patients may have clear liquids (water, carbonated beverages, clear teas, apple juice) until 3 hours prior to surgery (10:00) with a maximum of 20 ounces. - No food from midnight until time of surgery Take the following medications with a SIP of water the morning of surgery: TYLENOL IF NEEDED Medications to discontinue per physician: IBUPROFEN Date to take last dose: PER DR. DRE HARRIS Please no make-up, nail icelandic, hairspray, perfume, deodorant, or body powder the day of surgery. No jewelry (including any body piercings) or valuables the day of surgery, leave them at home. Please take a shower or bath the night before, or the morning of, surgery with an antibacterial soap. Wear comfortable, loose fitting clothing. - Jewelry must be removed prior to entering the operating room. Rings and piercings that are not removed may be cut off. - The hospital will not accept responsibility for valuables. - Please leave all valuables, including medications, at home the day of surgery. If you are going home after surgery, a licensed mule driver must drive you home. - NO public transportation without another adult. - We recommend that an adult stay with you for 24 hours following discharge. - We also recommend that you do not drive, make important decision, drink alcoholic beverages, or take any drugs that were not prescribed by your health care provider for at least 24 hours after your discharge time. Follow any additional instructions given to you from your surgeon. If you or anyone in your household have experienced Covid symptoms in the past week, please notify your surgeon or the nurse liaison at the phone number below for possible testing. Telephone instructions given to PT - TAMEKA LEÓN and asked if any additional questions and then verbalized understanding. Patient advised to call surgeon office or pre surgery nurse liaison [phone] if any additional questions.
--- NOTE | 2022-03-01 12:38 | PM.IMHP ---
H&P: HPI History of Present Illness Date/Time: 03/01/22 12:38 Chief Complaint: Pelvic pain with enlarged uterus and irregular excessive bleeding Narrative: This is a 41-year-old female admitted for hysterectomy bilateral salpingectomy and right oophorectomy. She has a known fibroid uterus sized a 3 month . She has had pain discomfort and dyspareunia she had a D&C with benign findings she had an IUD placed in that did not work and she continued to bleed she did poorly with control pills and she has continued to have right-sided pain as well. She will undergo robotic total vaginal hysterectomy and right salpingo-oophorectomy with removal left tube. Risks and benefits reviewed including but not exclusive of , aspiration pneumonia, bleeding, transfusion, perforation injury to bowel, bladder, ureters, or other internal organs with need for open laparotomy. She received the [employer] handout entitled hysterectomy as well as an event she handout. She had all questions answered and asked to proceed PMFSH Past Medical History Medical History Chronic pain Healthy adult IUD (intrauterine device) in place Surgical History Surgical History H/O shoulder surgery History of colposcopy (~04/11/21) Hx of appendectomy Social History Social History Smoking status: Never smoker Alcohol intake: current Alcohol use details: RARE Substance use: never Substance use type: does not use Spiritual care concerns: No Meds Home Medications and Allergies Home Medications Medication Instructions Recorded Confirmed Type acetaminophen 500 mg tablet 1,000 mg PO Q8H PRN pain #60 tabs 01/16/22 02/24/22 Rx ibuprofen 800 mg tablet 800 mg PO TID PRN pain #30 tabs 01/16/22 02/24/22 Rx Allergies Allergy/AdvReac Type Severity Reaction Status Date / Time No Known Allergies Allergy Verified 02/24/22 11:50 Exam Const: General: cooperative, healthy appearing, comfortable and average body habitus Orientation/consciousness: oriented to person, oriented to place and oriented to time HENMT: Head: normal to inspection Resp: Effort & Inspection: normal respiratory effort Cardio: Rate: regular rate Rhythm: regular rhythm Heart sounds: S1 normal heart sound present and S2 normal heart sound present GI: Inspection: normal to inspection : External Female Exam: normal external appearance Speculum Exam - Vagina: normal appearance of the vagina Speculum Exam - Cervix: normal appearance of the cervix Bimanual exam- vagina & uterus: enlarged and Uterine tenderness Bimanual Exam- Adnexa, other: Adnexal mass present on the right tender Assessment and Plan Assessment and plan (1) Enlarged uterus: Code(s): N85.2 - Hypertrophy of uterus Status: Acute (2) Vaginal bleeding: Code(s): N93.9 - Abnormal uterine and vaginal bleeding, unspecified Status: Acute (3) Right ovarian cyst: Code(s): N83.201 - Unspecified ovarian cyst, right side Status: Acute Plan Robotic total vaginal hysterectomy and right salpingo-oophorectomy with left salpingectomy
[2022-03-03] VITALS (13 sets, daily range): BP systolic 117–132; BP diastolic 71–89; PULSE 75–92; RESP 12–20; TEMP 36.4–37.1; O2SAT 93–100
--- NOTE | 2022-03-03 06:55 | WPDHPUPDATE1 ---
History and Physical Update Update Date/Time: 03/03/22 06:55 History and Physical has been reviewed, including an updated exam of the patient. There are NO changes in the patient's condition. Risks, benefits, and alternatives have been discussed and questions answered. Patient agrees to proceed with procedure.
--- NOTE | 2022-03-03 08:38 | WPDANESEPPF ---
Anes - Initial Pre Proc Eval Procedure: Operation Date: 03/03/22 12:00 Proposed Procedures p Robotic Assisted Total Vaginal Hysterectomy, Right Salpingo-oophorectomy - Trevor Drew MD <Marcial George MD - Last Filed: 03/21/22 14:19> Date/Time: 03/03/22 08:38 <Marcial George MD - Last Filed: 03/21/22 14:19> Surgeon: Trevor Drew MD <Marcial George MD - Last Filed: 03/21/22 14:19> Pre Op Diagnosis: Pain, Excessive Bleeding, Enlarged Uterus <Marcial George MD - Last Filed: 03/21/22 14:19> Patient Data Age: 41 Gender: F Height: 1.6 m Weight: 61.24 kg <Marcial George MD - Last Filed: 03/21/22 14:19> Allergies Allergy/AdvReac Type Severity Reaction Status Date / Time No Known Allergies Allergy Verified 02/24/22 11:50 <Marcial George MD - Last Filed: 03/21/22 14:19> Home Medications Medication Instructions Recorded Confirmed Type acetaminophen 500 mg tablet 1,000 mg PO Q8H PRN pain #60 tabs 01/16/22 02/24/22 Rx ibuprofen 800 mg tablet 800 mg PO TID PRN pain #30 tabs 01/16/22 02/24/22 Rx hydrocodone 5 mg-acetaminophen 325 1 tablet PO Q4H PRN pain #30 tabs 03/03/22 Rx mg tablet <Marcial George MD - Last Filed: 03/21/22 14:19> Patient hx anesthesia problems: none <Ad Harper MD - Last Filed: 03/03/22 10:19> Family hx anesthesia problems: none <Ad Harper MD - Last Filed: 03/03/22 10:19> Results Review: All pre-operative results and documents have been reviewed as part of the pre-operative evaluation. <Marcial George MD - Last Filed: 03/21/22 14:19> PMFSH Past Medical History Medical History: Medical History Chronic pain Healthy adult IUD (intrauterine device) in place <Marcial George MD - Last Filed: 03/21/22 14:19> Surgical History Surgical History: Surgical History H/O shoulder surgery History of colposcopy (~04/11/21) Hx of appendectomy <Marcial George MD - Last Filed: 03/21/22 14:19> Social History Social History: Social History Smoking status: Never smoker Alcohol intake: current Alcohol use details: RARE Substance use: never Substance use type: does not use Living arrangements: with family Spiritual care concerns: No <Marcial George MD - Last Filed: 03/21/22 14:19> Anes - Eval Final PreProcedure Day of Procedure 03/03/22 08:38 <Marcial George MD - Last Filed: 03/21/22 14:19> Patient weight: normal <Ad Harepr MD - Last Filed: 03/03/22 10:19> Heart: regular rate and rhythm <Ad Harper MD - Last Filed: 03/03/22 10:19> Lungs: clear to auscultation <Ad Harper MD - Last Filed: 03/03/22 10:19> Airway: Mallampati scale class II <Ad Harper MD - Last Filed: 03/03/22 10:19> Neurological: alert and oriented <Ad Harper MD - Last Filed: 03/03/22 10:19> Last oral intake: >/= 8 hours <Ad Harper MD - Last Filed: 03/03/22 10:19> ASA classification: II <Ad Harper MD - Last Filed: 03/03/22 10:19> Emergent: no <Ad Harper MD - Last Filed: 03/03/22 10:19> Anesthetic plan: proceed <Ad Harper MD - Last Filed: 03/03/22 10:19> Anesthesia type and monitoring: general ETT and standard monitoring <Ad Harper MD - Last Filed: 03/03/22 10:19> Results Review: All pre-operative results and documents have been reviewed as part of the pre-operative evaluation. <Marcial George MD - Last Filed: 03/21/22 14:19> Informed Consent: The patient's anesthetic plan and its attendant risks and benefits were discussed with the patient/family/POA. Questions were solicited and answers provided to the satisfaction of the patient/family/POA. <Marcial George MD - Last Filed: 03/21/22 14:19>
[2022-03-03] MEDS: LACTATED RINGERS 1,000 ML 30 ML IV CONT ×3 (11:00→14:55)
[2022-03-03] MEDS: KETOROLAC 15 MG/ML VIAL (*BKC) IV PUSH (11:00)
[2022-03-03] MEDS: ACETAMINOPHEN 500 MG TABLET 1000 MG PO (11:00)
[2022-03-03] MEDS: ceFAZolin 2 GM/D5W 50 ML 2 GM/50 ML BAG IVPB (11:51)
--- NOTE | 2022-03-03 12:55 | W.PM.PROC2 ---
Procedure Note - Detailed Date of Procedure 03/03/22 Pre-op Diagnosis Pain, Excessive Bleeding, Enlarged Uterus Post-op Diagnosis Same Procedure Performed Robotic total vaginal hysterectomy with right salpingo-oophorectomy and left salpingectomy Surgeon Trevor Drew MD Anesthesia General Indications this is a 41-year-old with known uterine fibroids and right ovarian cyst Findings markedly enlarged uterus with what appeared to be fibroids. Right ovarian cyst. Normal-appearing tubes Description of Procedure patient is prepped draped in normal sterile fashion placed in dorsal lithotomy position. Under excellent general trach anesthesia weighted speculum placed posterior fornix vagina. Anterior lip of the cervix was grasped with a single-tooth tenaculum. The uterus sounded to 10cm. Serial dilatation with fragmented dilators performed followed by passes the 8. RENITA and the 3. Cold cup. Next the 16 Swedish catheter was placed in the bladder. The gloves were changed after the instruments removed from the vagina. A supraumbilical incision made and Veress needle passed in the abdomen. Abdomen filled with CO2 gas [id number]. The 8mm trocar advanced in the abdomen. Downside visualized with no injury seen. Patient placed in Trendelenburg. Right and lateral and left lateral quadrant incisions were made 8mm trocars advanced under direct visualization assuring no injury. Right upper quadrant incision made the 8mm trocar advanced under direct visualization again assuring no injury. The robot was docked. Attention was turned to the console. The left round ligament was grasped, burned, cut. Anterior bladder flap was formed by sharply dissecting the peritoneum and reflecting it distally away from the head to the opposite round ligament which was clamped burned and cut. Next the left fallopian tube was skeletonized and sharply dissected away from the ovarian complex and left attached to its uterine origin. The right infundibulopelvic structure was then skeletonized to remove the right ovary and tube. This was serially clamped, burned, cut and brought to the level of previously cut round ligament. Next cardinal broad ligaments on the left were serially skeletonized hugging the cervix and uterus clamping burning and cutting into the large tortuous uterine vessels could be seen on the left. Each of these were individually clamped burned and cut. In like fashion the cardinal broad ligaments on the right were serially skeletonized hugging the cervix and uterus clamping burning cutting into the uterine vessels could be seen on the right. These were individually clamped, burned, cut. Excellent blanching of the enlarged uterus was noted in a colpotomy incision was made. Cervix uterus right ovary and tube and left tube were removed through the vagina. The vagina was then closed with continuous running 0V lock from lateral edge to lateral edge back to midline. Irrigation subcutaneous layer was undertaken. The robot was undocked and the gas removed from the abdomen. The trocars removed and the incisions closed with 4 Monocryl and glue. Patient was awakened went recovery in satisfactory condition. All sponge, needle, instrument counts were correct. There were no immediate complications noted Estimated Blood Loss 50 Drains No Packing No Pathology Yes Complications No immediate complications Condition Stable Disposition PACU
[2022-03-03] MEDS: fentaNYL CITRATE INJ (*CRX) 100 MCG/2 ML VIAL 25 MCG IV PUSH ×6 (13:37→15:00)
--- NOTE | 2022-03-03 15:35 | PC.NURSE ---
This patient, Alena Murray, was received from PACU on 03/03/22 at 1535. Patient/family oriented to unit policies and routines
[2022-03-03] MEDS: DEXTROSE 5%/LACTATED RINGERS 1,000 ML 125 ML IV CONT (16:15)
[2022-03-03] MEDS: KETOROLAC 30 MG/ML VIAL (*BKC) IV PUSH ×2 (16:16→22:27)
[2022-03-03] MEDS: ONDANSETRON INJ 4 MG/2 ML VIAL IV PUSH (16:21)
[2022-03-03] MEDS: HYDROcodone/acetaminophen (*CRX) 5-325 MG TABLET 1 TAB PO (17:31)
[2022-03-03] MEDS: DOCUSATE SODIUM 100 MG CAPSULE PO (17:31)
[2022-03-03] MEDS: HYDROcodone/acetaminophen (*CRX) 10-325 MG TABLET 1 TAB PO ×2 (20:30→23:47)
[2022-03-03] MEDS: SIMETHICONE 80 MG TAB.CHEW PO (23:50)
[2022-03-04 04:40] VITALS: BP 125/76; PULSE 79; RESP 16; TEMP 36.6
[2022-03-04 05:18] LABS: Basophils Percent Auto 0.2 % (0.2-1.2); Hematocrit 37.8 % (37.0-47.0); Hemoglobin 12.8 g/dL (12.0-15.0); Immature Granulocyte Absolute 0.07 K/mm3 (0.00-0.031); Immature Granulocyte Percent A 0.4 % (0-0.5); Lymphocytes Absolute Auto 1.12 K/mm3 (0.9-3.2); Lymphocytes Percent Auto 5.9 % (18.3-44.2); Mean Corpuscular HGB Conc 33.9 g/dl (32-36); Mean Corpuscular Volume 97.4 fl (80-100); Mean Platelet Volume 12.1 fl (7.4-10.4); Monocytes Absolute Auto 1.1 K/mm3 (0.1-0.6); Monocytes Percent Auto 5.7 % (2.6-8.5); Neutrophils Absolute Auto 16.8 K/mm3 (1.3-6.7); Neutrophils Percent Auto 87.8 % (45.5-73.1); Platelet Count Result 193 k/mm3 (150-375); Red Blood Count 3.88 M/mm3 (4.2-5.4); Red Cell Distribution Width 12.2 % (11.5-14.5); White Blood Count 19.1 K/mm3 (4.5-10.0)
--- NOTE | 2022-03-04 07:41 | PM.GYNPNOP ---
[employer] - A/P Postoperative Procedures: Procedures Operation Date: 03/03/22 12:00 Actual Procedure Side Surgeon p Robotic Assisted Total Vaginal Hysterectomy, Right Salpingo-oophorectomy Bilateral Trevor Drew MD Postoperative day: 1 Postoperative status: doing well Postoperative plan: routine post-op care, advance diet and discharge Time Spent With Patient Time: Total time spent is greater than 50% in coordination of care (as documented) at patient's floor/unit and/or counseling patient: Time with patient: less than 15 minutes [employer]- PN:Subj Post-Op Subjective Date/time seen: 03/04/22 07:41 Subjective: patient has no complaints, pain is well controlled and patient is tolerating oral intake Exam Const: General: cooperative, healthy appearing and comfortable Nutritional Appearance: average body habitus Orientation/consciousness: oriented to person, oriented to place and oriented to time HENMT: Head: normal to inspection Resp: Effort & Inspection: normal respiratory effort Cardio: Rate: regular rate Rhythm: regular rhythm Heart sounds: S1 normal heart sound present and S2 normal heart sound present GI: Inspection: normal to inspection and incision (Wounds clean dry and intact) [employer] - PN: Obj Data Vital Signs Vital Signs: Vital Signs - 24 hr 03/03/22 10:30 03/03/22 13:07 03/03/22 13:20 Temperature 98.8 F 97.7 F Pulse Rate 78 92 84 Respiratory Rate 16 14 20 Blood Pressure 120/74 124/77 119/77 Pulse Oximetry 98 98 99 Oxygen Delivery Room Air Simple Face Mask Simple Face Mask Oxygen Flow Rate 8 8 03/03/22 13:35 03/03/22 13:50 03/03/22 14:05 Temperature Pulse Rate 75 81 80 Respiratory Rate 14 12 12 Blood Pressure 125/83 122/83 123/80 Pulse Oximetry 100 94 94 Oxygen Delivery Simple Face Mask Room Air Room Air Oxygen Flow Rate 8 03/03/22 14:20 03/03/22 14:35 03/03/22 14:50 Temperature Pulse Rate 85 79 83 Respiratory Rate 12 12 12 Blood Pressure 119/89 129/78 118/76 Pulse Oximetry 93 96 94 Oxygen Delivery Room Air Room Air Room Air Oxygen Flow Rate 03/03/22 15:05 03/03/22 15:20 03/03/22 15:40 Temperature 97.9 F Pulse Rate 87 89 92 Respiratory Rate 12 12 18 Blood Pressure 119/74 117/78 120/71 Pulse Oximetry 95 95 96 Oxygen Delivery Room Air Room Air Oxygen Flow Rate 03/03/22 19:00 03/04/22 04:40 Temperature 97.6 F 97.9 F Pulse Rate 82 79 Respiratory Rate 16 16 Blood Pressure 132/80 125/76 Pulse Oximetry Oxygen Delivery Oxygen Flow Rate Intake/Output Intake/Output: Intake & Output 03/01/22 03/02/22 03/03/22 03/04/22 23:59 23:59 23:59 23:59 Intake Total 850 200 Output Total 100 1600 Balance 750 -1400 Meds/Results Medications: Active Medications Generic Name Dose Route Start Last Admin Trade Name Freq PRN Reason Stop Dose Admin Hydrocodone Bitart/Acetaminophen 1 tab 03/03/22 15:23 03/03/22 17:31 Hydrocodone/Acetaminophen (*Crx) 5-325 Mg Tablet PO 1 tab Q3H PRN Administration Pain Rated 5 or Less Hydrocodone Bitart/Acetaminophen 1 tab 03/03/22 15:23 03/03/22 23:47 Hydrocodone/Acetaminophen (*Crx) 10-325 Mg Tablet PO 1 tab Q3H PRN Administration Pain Rated 6 or Greater Docusate Sodium 100 mg 03/03/22 17:00 03/03/22 17:31 Docusate Sodium 100 Mg Capsule PO 100 mg BID LASHAY Administration Enoxaparin Sodium 40 mg 03/04/22 09:00 Enoxaparin 40 Mg/0.4 Ml Syringe SUB-Q DAILY LASHAY Ibuprofen 600 mg 03/03/22 15:23 Ibuprofen 600 Mg Tablet PO Q6H PRN Cramping Ketorolac Tromethamine 30 mg 03/03/22 15:23 03/03/22 22:27 Ketorolac 30 Mg/Ml Vial (*Bkc) IV PUSH 03/08/22 15:22 30 mg Q6H PRN Administration Pain Rated 4-6 Naloxone HCl 0.1 mg 03/03/22 15:23 Naloxone Hcl 0.4 Mg/Ml Vial IV PUSH Q2M PRN Respiratory rate less than 10 Ondansetron HCl 4 mg 03/03/22 15:23 03/03/22 16:21 Ondansetron Inj 4 Mg/2 Ml Vial IV PUSH 4 mg Q6H PRN
--- NOTE | 2022-03-04 07:43 | P.DS_ITS ---
DS: Admitting Diagnosis Discharge Date 03/04/2022 Admitting Diagnosis Complex right ovarian cyst/enlarged uterus/endometrial hyperplasia with the/bleeding/pelvic pain DS: Discharge Diagnosis Discharge Diagnosis (1) Right ovarian cyst: Code(s): N83.201 - Unspecified ovarian cyst, right side Status: Acute (2) Vaginal bleeding: Code(s): N93.9 - Abnormal uterine and vaginal bleeding, unspecified Status: Acute (3) Enlarged uterus: Code(s): N85.2 - Hypertrophy of uterus Status: Acute (4) Endometrial hyperplasia without atypia: Code(s): N85.00 - Endometrial hyperplasia, unspecified Status: Acute DS: Summary Hospital Course Reason for hospitalization: Patient was admitted for robotic hysterectomy and bilateral cyst salpingectomy with right oophorectomy Hospital Course: Patient underwent robotic total vaginal hysterectomy with right salpingo- oophorectomy and left salpingectomy. Her hospital course unremarkable. She remained afebrile. She was up, voiding without difficulty, ambulating, eating regular diet, and generally without complaints. Time Spent with Patient Time attestation: Total time spent providing and/or coordinating discharge services: Exam Const: General: cooperative, healthy appearing and comfortable Nutritional Appearance: average body habitus Orientation/consciousness: oriented to person, oriented to place and oriented to time HENMT: Head: normal to inspection Resp: Effort & Inspection: normal respiratory effort Cardio: Rate: regular rate Rhythm: regular rhythm Heart sounds: S1 normal heart sound present and S2 normal heart sound present GI: Inspection: normal to inspection and incision (Wounds clean dry and in tact) DS: Data Data Completed and Pending Pending studies at discharge: Pending at discharge 03/03/22 12:33 Surgical [PTH] Routine Labs on day of discharge: Labs from last 24 hours 03/04/22 04:39 WBC 19.1 H RBC 3.88 L Hgb 12.8 Hct 37.8 MCV 97.4 MCH 33.0 MCHC 33.9 RDW 12.2 Plt Count 193 MPV 12.1 H Immature Gran % (Auto) 0.4 Neut % (Auto) 87.8 H Lymph % (Auto) 5.9 L [place] % (Auto) 5.7 Eos % (Auto) 0.0 Baso % (Auto) 0.2 Lymph # (Auto) 1.12 [place] # (Auto) 1.1 H Eos # (Auto) 0.0 Baso # (Auto) 0.0 Abs Immat Gran (auto) 0.07 H Absolute Neuts (auto) 16.8 H Absolute Nucleated RBC 0.0 Nucleated RBC % 0.0 Discharge Plan Discharge Patient Disposition: Home, Self-Care Stand Alone Forms: General Discharge Instructions Follow-up/Referrals: Trevor Aquino MD [Physician] - Discharge Medications: New hydrocodone-acetaminophen 5-325 mg tablet 1 tablet PO Q4H PRN (Reason: pain) Qty: 30 0RF No Action ibuprofen 800 mg tablet 800 mg PO TID PRN (Reason: pain) Qty: 30 0RF acetaminophen 500 mg tablet 1,000 mg PO Q8H PRN (Reason: pain) Qty: 60 0RF
[2022-03-04 08:30] VITALS: BP 118/82; PULSE 79; RESP 20; TEMP 37.2; O2SAT 99
--- NOTE | 2022-03-04 08:58 | P.PNAN_ITS ---
Anes - Prog Note Post-Op Date/Time: 03/04/22 08:58 Cardiovascular status: normal Respiratory status: normal Airway patency: baseline Mental status: baseline Post-Op hydration status: normal Vital Signs: Last Vital Signs Temp 36.6 C 03/04/22 04:40 Pulse 79 03/04/22 04:40 Resp 16 03/04/22 04:40 BP 125/76 03/04/22 04:40 Pulse Ox 96 03/03/22 15:40 O2 Del Method Room Air 03/03/22 15:20 O2 Flow Rate 8 03/03/22 13:35 Pain Score (VAS): 06/23 I/O: Intake & Output 03/03/22 03/04/22 03/04/22 23:59 07:59 15:59 Intake Total 200 Output Total 1600 Balance -1400 Laboratory Tests 03/04/22 04:39 03/04/22 04:39 WBC 19.1 H RBC 3.88 L Hgb 12.8 Hct 37.8 MCV 97.4 MCH 33.0 MCHC 33.9 RDW 12.2 Plt Count 193 MPV 12.1 H Immature Gran % (Auto) 0.4 Neut % (Auto) 87.8 H Lymph % (Auto) 5.9 L [place] % (Auto) 5.7 Eos % (Auto) 0.0 Baso % (Auto) 0.2 Lymph # (Auto) 1.12 Phillips # (Auto) 1.1 H Eos # (Auto) 0.0 Baso # (Auto) 0.0 Abs Immat Gran (auto) 0.07 H Absolute Neuts (auto) 16.8 H Absolute Nucleated RBC 0.0 Nucleated RBC % 0.0 Post-procedural complaints: nausea Patient Feedback: Patient satisfied with anesthetic care. Other Findings: Resolved this morning
[2022-03-04] MEDS: ENOXAPARIN 40 MG/0.4 ML SYRINGE SUB-Q (08:59)
[2022-03-04] MEDS: DOCUSATE SODIUM 100 MG CAPSULE PO (08:59)
[2022-03-04] MEDS: HYDROcodone/acetaminophen (*CRX) 5-325 MG TABLET 1 TAB PO (09:00)
[2022-03-04] MEDS: IBUPROFEN 600 MG TABLET PO (09:01)
== END 2022-03-04 11:20 | disposition home or self-care (01) ==
LOC: ANHSURGERY 09:57 → ANHOB2 15:52
PROVIDERS: PCP Family Medicine Sports Medicine; Visit Provider Obstetrics & Gynecology
PROC: (CPT 58552; principal; 2022-03-03 12:00)
DX: R10.2 Pelvic and perineal pain (principal); N93.9 Abnormal uterine and vaginal bleeding, unspecified; N72 Inflammatory disease of cervix uteri; N88.8 Other specified noninflammatory disorders of cervix uteri; D25.1 Intramural leiomyoma of uterus; N80.00 Endometriosis of the uterus, unspecified; N94.10 Unspecified dyspareunia; N83.201 Unspecified ovarian cyst, right side
CPT/HCPCS: 58552; S2900; 36415; 85025; 86850; 86900; 86901; 88307; 99199; A9270; J0690; J1100; J1170; J1650; J1885; J2250; J2405; J2704; J2710; J3010; J7030; J7120; J7121

== ENCOUNTER 2023-03-26 02:51 | Day surgery (SDC) | payer BC, SELFPAY ==
[2023-03-12 13:13] VITALS: BMI 24.9
--- NOTE | 2023-03-23 10:48 | SUR.PREOP ---
Patient called regarding upcoming procedure. Message left on patient's voicemail regarding preop instructions, appointment times, and procedure prep.
[2023-03-26 12:00] VITALS: BP 140/74; PULSE 92; RESP 16; TEMP 36.3; O2SAT 100
[2023-03-26] MEDS: LACTATED RINGERS 1,000 ML 150 ML IV CONT (12:08)
--- NOTE | 2023-03-26 12:16 | WPDANESEPPF ---
Anes - Initial Pre Proc Eval Procedure: Operation Date: 03/26/23 13:00 Proposed Procedures p Colonoscopy - Abner Sandra MD Date/Time: 03/26/23 12:16 Surgeon: Abner Sandra MD Pre Op Diagnosis: constipation Patient Data Age: 42 Gender: F Height: 1.6 m Weight: 62 kg Last Vital Signs Temp 97.4 F L 03/26/23 12:00 Pulse 92 03/26/23 12:00 Resp 16 03/26/23 12:00 BP 140/74 03/26/23 12:00 Pulse Ox 100 03/26/23 12:00 O2 Del Method Room Air 03/26/23 12:00 Allergies Allergy/AdvReac Type Severity Reaction Status Date / Time No Known Allergies Allergy Verified 03/26/23 11:59 Home Medications Medication Instructions Recorded Confirmed Type multivitamin 1 tablet PO DAILY 02/23/23 03/26/23 History Patient hx anesthesia problems: none Family hx anesthesia problems: none Results Review: All pre-operative results and documents have been reviewed as part of the pre-operative evaluation. [facility] Past Medical History Medical History (Updated 02/25/23 @ 15:10 by Sommer Connolly MD) Abdominal pain Arthralgia of both hands Chronic pain Endometrial hyperplasia without atypia Enlarged uterus Healthy adult IUD (intrauterine device) in place Right ovarian cyst Vaginal bleeding Surgical History Surgical History (Updated 02/25/23 @ 14:33 by Sommer Connolly MD) H/O shoulder surgery History of colposcopy (~04/11/21) History of salpingoophorectomy Hx of appendectomy Status post laparoscopic assisted vaginal hysterectomy (LAVH) 2021 Social History Social History (Updated 02/23/23 @ 15:11 by Cristina Pabon) Social History: Smoking status: Never smoker Second hand tobacco smoke exposure: No Alcohol intake: current Alcohol use details: 1 drink monthly Substance use: never Substance use type: does not use Lack of Transportation: No Lack of Food: Never True Current Housing: I Have Housing Concerned About Future Housing: No Difficulty Paying Gas/Electric Bills: No Difficulty Paying for Meds: No Currently Unemployed: No Education: Don't Know Difficulty w/ Childcare or Family Care: No Living arrangements: with family Occupation/Education: occupation Additional occupation/education comments: [employer] Gender identity (if verbalized by the patient): Female Sexual Orientation (if Verbalized by the Patient): Straight or Heterosexual Spiritual care concerns: No Anes - Eval Final PreProcedure Day of Procedure 03/26/23 12:16 Patient weight: normal Heart: regular rate and rhythm Lungs: clear to auscultation Airway: Mallampati scale class II Neurological: alert and oriented Last oral intake: >/= 8 hours ASA classification: II Emergent: no Anesthetic plan: proceed Anesthesia type and monitoring: general GIVS and standard monitoring Results Review: All pre-operative results and documents have been reviewed as part of the pre-operative evaluation. Informed Consent: The patient's anesthetic plan and its attendant risks and benefits were discussed with the patient/family/POA. Questions were solicited and answers provided to the satisfaction of the patient/family/POA.
--- NOTE | 2023-03-26 12:23 | PM.HPGS ---
History of Present Illness History of Present Illness Consent: Risks, benefits, and alternatives have been discussed and questions answered. Patient agrees to proceed with procedure. Chief complaint: constipation Narrative: Alena Murray is a 42 year old female with constipation, had colonoscopy 2019 Review of Systems Constitutional: Constitutional: Denies headache(s) and Denies weakness Eyes: Eyes: Denies blurry vision ENT: Reports Normal hearing present, Denies headache(s) and Denies neck pain Cardiovascular: Cardiovascular: Denies chest pain and Denies dyspnea Respiratory: Respiratory: Denies dyspnea Gastrointestinal: Gastrointestinal: Reports no additional gastrointestinal complaints Genitourinary: Genitourinary: Denies dysuria Musculoskeletal: Musculoskeletal: Denies neck pain Integumentary/Breasts: Skin/Breast: Denies dry skin Neurologic: Reports Normal hearing present, Denies headache(s) and Denies weakness Psychiatric: Psychiatric: Denies anxiety Endocrine: Endocrine: Denies change in body appearance Hematologic/Lymphatic: Hematologic/Lymphatic: Denies easy bleeding Allergic/Immunologic: Allergic/Immunologic: Denies urticaria PMF Past Medical History Medical History (Updated 02/25/23 @ 15:10 by Sommer Connolly MD) Abdominal pain Arthralgia of both hands Chronic pain Endometrial hyperplasia without atypia Enlarged uterus Healthy adult IUD (intrauterine device) in place Right ovarian cyst Vaginal bleeding Surgical History Surgical History (Updated 02/25/23 @ 14:33 by Sommer Connolly MD) H/O shoulder surgery History of colposcopy (~04/11/21) History of salpingoophorectomy Hx of appendectomy Status post laparoscopic assisted vaginal hysterectomy (LAVH) 2021 Social History Social History (Updated 02/23/23 @ 15:11 by Cristina Pabon) Social History: Smoking status: Never smoker Second hand tobacco smoke exposure: No Alcohol intake: current Alcohol use details: 1 drink monthly Substance use: never Substance use type: does not use Lack of Transportation: No Lack of Food: Never True Current Housing: I Have Housing Concerned About Future Housing: No Difficulty Paying Gas/Electric Bills: No Difficulty Paying for Meds: No Currently Unemployed: No Education: Don't Know Difficulty w/ Childcare or Family Care: No Living arrangements: with family Occupation/Education: occupation 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[employer] Gender identity (if verbalized by the patient): Female Sexual Orientation (if Verbalized by the Patient): Straight or Heterosexual Spiritual care concerns: No Meds Home Medications and Allergies Home Medications Medication Instructions Recorded Confirmed Type multivitamin 1 tablet PO DAILY 02/23/23 03/26/23 History Allergies Allergy/AdvReac Type Severity Reaction Status Date / Time No Known Allergies Allergy Verified 03/26/23 11:59 Vital Signs Vital Signs - 24 hr 03/26/23 12:00 Temperature 97.4 F L Pulse Rate 92 Respiratory Rate 16 Blood Pressure 140/74 Pulse Oximetry 100 Oxygen Delivery Room Air Exam Const: General: comfortable and no acute distress HENMT: Face/Nose/Sinus: Normal nares present Eyes: General: appearance normal, both eyes and all related structures Neck: Neck: no JVD Resp: Auscultation: clear to auscultation bilaterally Cardio: Rate: regular rate Rhythm: regular rhythm GI: Inspection: non-distended GI Palp: Yes Soft to palpation Skin: General skin exam: normal color Neuro: General: gait normal Speech: normal speech Extrem: General: normal to inspection Psych: Mental Status: mental status grossly normal Assessment and Plan Assessment and plan (1) Constipation: Qualifiers: Constipation type: slow transit constipation Qualified Code(s): K59.01 - Slow transit constipation Co
[2023-03-26 12:42] VITALS: BP 109/76; PULSE 62; RESP 15; O2SAT 96
[2023-03-26 12:52] VITALS: BP 106/69; PULSE 79; RESP 15; O2SAT 100
[2023-03-26 13:02] VITALS: BP 122/70; PULSE 82; RESP 13; O2SAT 100
== END 2023-03-26 13:10 | disposition home or self-care (01) ==
PROVIDERS: PCP Family Medicine; Visit Provider Internal Medicine Gastroenterology
PROC: 0DJD8ZZ Inspection of Lower Intestinal Tract, Via Natural or Artificial Opening Endoscopic (ICD-10-PCS; CPT 45378; principal; 2023-03-26 13:00)
DX: K59.00 Constipation, unspecified (principal); K64.8 Other hemorrhoids; G89.29 Other chronic pain; N85.00 Endometrial hyperplasia, unspecified
CPT/HCPCS: 45378; J2704; J7120

== ENCOUNTER 2024-03-06 09:14 | Emergency (ER) | payer BC, SELFPAY ==
--- NOTE | ~2024-03-06 | XR_ITS ---
EXAMINATION: XR foot RT min 3V, XR tibia fibula RT 2V DATE: 03/06/2024 10:21 INDICATION: Medial right foot and mid tibial pain post fall 2 days prior TECHNIQUE: 1. Anteroposterior and lateral views of the right tibia/fibula were obtained. 2. Dorsoplantar, two oblique and lateral views of the right foot were obtained. COMPARISON: None. FINDINGS: Bone alignment is normal. No acute fracture. Small ovoid corticated ossicle related to the lateral ma lleolus which could represent either a chronic nonunited avulsion fracture fragment or heterotopic os sification related to chronic anterior talofibular ligament sprain. Joint spaces are relatively prese rved at the right knee, foot and ankle. No right knee or ankle joint effusion. Mild soft tissue swell ing and subcutaneous edema anterior to the distal right tibial diaphysis. IMPRESSION: 1. Small corticated ossicle at the tip the lateral malleolus likely sequela of chronic lateral ankle injury. No acute osseous abnormality at the right foot, ankle and lower leg. Reviewed, dictated and finalized at location B. RETE PILE DRIVER OPERATOR IMPRESSION: 1. Small corticated ossicle at the tip the lateral malleolus likely sequela of chronic lateral ankle injury. No acute osseous abnormality at the right foot, a nkle and lower leg.
[2024-03-06 10:00] VITALS: BP 104/82; PULSE 89; RESP 16; TEMP 36.8; O2SAT 100
--- NOTE | 2024-03-06 10:07 | ED_ITS ---
HPI - Extremity Injury (Lower) General Chief Complaint: Extremity Injury, Lower Stated Complaint: fall Time Seen by Provider: 03/06/24 10:10 Source: patient, RN notes reviewed and old records reviewed Mode of arrival: ambulatory Limitations: no limitations History of Present Illness HPI Narrative: 43 year old female who presents with complaints of fall on Sunday night when taking out trash tripped over fire pit with injury to the anterior aspect of right lower leg with bruising and swelling present and reports pain to anterior and medial aspect of right foot. Patient reports that she has been having limited walking on her foot with limp noted. Patient reports that she has been icing her foot and lower leg , has elevated and has taken Ibuprofen for her discomfort. MD complaint: leg injury (lower right leg and right anterior medial foot) and foot injury Onset (ago): day(s) (2) Injury: Right: foot Type of Injury: other (fall) Place: home Severity scale (1-10): 5 Exacerbating factors: weight bearing and movement Associated symptoms: swelling and other (bruising to anterior lower right leg) Treatments prior to arrival: cold therapy, NSAIDS and other (elevation) Related Data Home Medications Medication Instructions Recorded Confirmed No Home Medications 03/06/24 03/06/24 Allergies Allergy/AdvReac Type Severity Reaction Status Date / Time No Known Allergies Allergy Verified 03/06/24 10:00 Review of Systems Review of Systems: CONSTITUTIONAL: Denies fever, chills, or sweats. EYES: Denies visual changes, redness, or discharge. ENT: Denies rhinorrhea, congestion, sore throat, or otalgia. CARDIOVASCULAR: Denies chest pain, palpitations, or edema. RESPIRATORY: Denies cough or dyspnea. GASTROINTESTINAL: Denies abdominal pain, nausea, vomiting, or diarrhea. GENITOURINARY: Denies dysuria or hematuria. SKIN: Denies rash or itching. MUSCULOSKELETAL: Denies back pain,Pain to anterior aspect of right lower leg with bruising and tenderness noted, right anterior medial foot pain, or myalgia. NEUROLOGIC: Denies headache, numbness, or weakness. PSYCHIATRIC: Denies anxiety or depression. All systems reviewed & are unremarkable except as noted in HPI and below PMFSH Past Medical History Medical History Abdominal pain Arthralgia of both hands Chronic pain Endometrial hyperplasia without atypia Enlarged uterus Healthy adult IUD (intrauterine device) in place Right ovarian cyst Vaginal bleeding Surgical History Surgical History H/O shoulder surgery History of colposcopy (~04/11/21) History of salpingoophorectomy Hx of appendectomy Status post laparoscopic assisted vaginal hysterectomy (LAVH) 2021 Social History Social History Social History: Smoking status: Never smoker Second hand tobacco smoke exposure: No Alcohol intake: current Alcohol use details: 1 drink monthly Substance use: never Substance use type: does not use Lack of Transportation: No Lack of Food: Never True Current Housing: I Have Housing Concerned About Future Housing: No Difficulty Paying Gas/Electric Bills: No Difficulty Paying for Meds: No Currently Unemployed: No Education: Don't Know Difficulty w/ Childcare or Family Care: No Living arrangements: with family Occupation/Education: occupation Additional occupation/education comments: [employer] Gender identity (if verbalized by the patient): Female Sexual Orientation (if Verbalized by the Patient): Straight or Heterosexual Spiritual care concerns: No Comments At time of signature, agree with nursing past medical, surgical, social and family history. There is no relevant family history pertinent to the presenting complaint Exam Narrative: GENERAL: Well-appearing, well-nourished, and in no acute distress. HEAD: Normocephalic, atraumatic. EYES: PERRLA and EOMI. ENT: Nares clear, no rhinorrhea or epistaxis. Mucous membranes moist. NECK: Supple.no lymphadenopathy CHEST: Clear to auscultation. No respiratory distress.SAO2 100% on room air HEART: Regular rate and rhythm. No murmur heard. Normal peripheral pulses. ABDOMEN: Soft, nontender, nondistended, normal active bowel sounds. EXTREMITIES: Normal range of motion. No edema.Exception noted to right lower anterior leg with some selling and bruising and pain to anterior medial aspect of right foot,Patient has no acute swelling or bruising to right foot with strong right pedal pulse present, has been doing some walking on her right foot with limping gait.Circulation and sensation intact to right foot movement limited due to discomfort. SKIN: Warm, dry, no rash. NEURO: No focal deficits. Alert and oriented x3. Course Course Emergency Course: Patient is aware of diagnosis, understands and agrees to treatment plan.? Anticipatory guidance given.? Patient agrees to follow-up as directed and is aware of reasons to seek care at the emergency department. Portions of this record may have been created with voice recognition software Level of Care: Express Care Visit Vital Signs Vital signs: Vital Signs Temperature 36.8 C 03/06/24 10:00 Pulse Rate 89 03/06/24 10:00 Respiratory Rate 16 03/06/24 10:00 Blood Pressure 104/82 03/06/24 10:00 Pulse Oximetry 100 03/06/24 10:00 Temperature 36.8 C 03/06/24 10:00 Pulse Rate 89 03/06/24 10:00 Respiratory Rate 16 03/06/24 10:00 Blood Pressure 104/82 03/06/24 10:00 Pulse Oximetry 100 03/06/24 10:00 Reviewed MDM - Extremity Injury (Lower) Differential Diagnosis Differential diagnosis: Likely other (foot sprain and strain, right foot pain, contusion to anteior right lower leg, fall) Medical Records Attestation: I reviewed the patient's medical records. Imaging Data Attestation: I personally reviewed and interpreted this imaging study as follows: My impression: no acute fracture or misalignment of right foot ankle or lower leg Radiologist's impression: [facility] [address] [place] [address] XRay Report Signed Patient: Alena Wilson : 1980 MR#: [id number] Age: 43 Acct:[id number] Loc: [id number] ADM Date: 03/06/24Attending Dr: Ordering Physician: Hannah Schultz APRN Date of Service: 03/06/24 Procedure(s): XR foot RT min 3V; XR tibia fibula RT 2V Accession Number(s): [id number]; [id number] cc: CASH MANAGEMENT COORDINATOR PHYSICIAN; Hannah Schultz APRN~ EXAMINATION: XR foot RT min 3V, XR tibia fibula RT 2V DATE: 03/06/2024 10:21 INDICATION: Medial right foot and mid tibial pain post fall 2 days prior TECHNIQUE: 1. Anteroposterior and lateral views of the right tibia/fibula were obtained. 2. Dorsoplantar, two oblique and lateral views of the right foot were obtained. COMPARISON: None. FINDINGS: Bone alignment is normal. No acute fracture. Small ovoid corticated ossicle related to the lateral malleolus which could represent either a chronic nonunited avulsion fracture fragment or heterotopic ossification related to chronic anterior talofibular ligament sprain. Joint spaces are relatively preserved at the right knee, foot and ankle. No right knee or ankle joint effusion. Mild soft tissue swelling and subcutaneous edema anterior to the distal right tibial diaphysis. IMPRESSION: 1. Small corticated ossicle at the tip the lateral malleolus likely sequela of chronic lateral ankle injury. No acute osseous abnormality at the right foot, ankle and lower leg. Reviewed, dictated and finalized at location B. RENCE LIBRARY ASSISTANT Dictated By: Kg Russell MD 03/06/24 1029 Signed By: <Electronically signed by Kg Russell MD in OV> Critical Care Time Critical Care Time Critical Care Time: No Discharge Plan Discharge Clinical Impression: Contusion of right lower leg, initial encounter, Sprain of foot, right Patient Disposition: Home, Self-Care Condition: Stable Instructions: Antibiotic Form, Contusion in Adults (ED), Foot Sprain (ED) Additional Instructions: Elastic wrap or orthopedic splint as directed for comfort for the next 5-7 days Tylenol for lesser pain Ibuprofen regularly for the next 2-3 days for the inflammation Follow-up with orthopedic surgeon if any further complaints or no improvement. Follow-up with PCP if further problems or concerns Ice to the area 20-30 minutes 4-6 times a day Elevate above heart If your symptoms persist, change or worsen significantly before you can contact your personal physician then please, without delay, go to the emergency department for further evaluation. Follow-up with PCP in 7-10 days or sooner if needed Prescriptions: No Action No Home Medications Follow-up/Referrals: PHYSICIAN,CASH MANAGEMENT COORDINATOR [Primary Care Provider] - Time of Disposition: 10:46 Quality Angelita Coma Scale Eyes: Open Verbal: Oriented and Alert Motor: Follows Commands Angelita Coma Total Score: 15
== END 2024-03-06 10:52 | disposition home or self-care (01) ==
PROVIDERS: Emergency Provider Registered Nurse
DX: S80.11XA Contusion of right lower leg, initial encounter (principal); W18.09XA Striking against other object with subsequent fall, initial encounter; S93.601A Unspecified sprain of right foot, initial encounter
CPT/HCPCS: 73590; 73630; 99214; G0463

== ENCOUNTER 2024-04-17 15:15 | Outpatient (CLI) | payer BC, SELFPAY ==
--- NOTE | ~2024-04-17 | XR_ITS ---
3 VIEWS LUMBAR SPINE Ordering provider: [place] n[place], [place] History: . LBP WITH RADICULAR PAIN DOWN RIGHT LEG . Comparison: None. FINDINGS: VERTEBRAL BODIES: No visible fracture or subluxation. Degenerative changes of the spine. DISK SPACES: Normal. Multilevel facet joint disease. SOFT TISSUES: Normal. IMPRESSION: No acute osseous abnormality lumbar spine. Reviewed, dictated and finalized at location A. MACHINIST
--- NOTE | ~2024-04-17 | XR_ITS ---
SINGLE AP VIEW PELVIS Ordering provider: [place], [place] History: . LBP WITH RADICULAR PAIN DOWN RIGHT LEG . Comparison: None. FINDINGS: BONES: No acute fracture or dislocation. HIP JOINT SPACES: Normal. SACROILIAC JOINT SPACES/LUMBAR SPINE: The sacroiliac joint spaces are normal. Normal visualized lower lumbar spine. PUBIC SYMPHYSIS: Normal. SOFT TISSUES: Normal. IMPRESSION: No acute osseous abnormality pelvis. Reviewed, dictated and finalized at location A. TICS FABRICATION SUPERVISOR
== END 2024-04-17 15:16 | disposition home or self-care (01) ==
PROVIDERS: PCP Family Medicine; Visit Provider Chiropractor
DX: M54.50 Low back pain, unspecified (principal); M54.10 Radiculopathy, site unspecified
CPT/HCPCS: 72100; 72170

== ENCOUNTER 2024-04-28 10:09 | Outpatient (CLI) | payer BC, SELFPAY ==
[2024-04-28 11:01] LABS: Basophils Percent Auto 0.7 % (0.2-1.2); Eosinophils Percent Auto 0.2 % (0-4.4); Hematocrit 44.5 % (37.0-47.0); Hemoglobin 14.8 g/dL (12.0-15.0); Immature Granulocyte Absolute 0.01 K/mm3 (0.00-0.031); Immature Granulocyte Percent A 0.2 % (0-0.5); Lymphocytes Absolute Auto 1.58 K/mm3 (0.9-3.2); Lymphocytes Percent Auto 34.3 % (18.3-44.2); Mean Corpuscular HGB Conc 33.3 g/dl (32-36); Mean Corpuscular Hemoglobin 31.6 pg (26-34); Mean Corpuscular Volume 94.9 fl (80-100); Mean Platelet Volume 11.7 fl (7.4-10.4); Monocytes Absolute Auto 0.3 K/mm3 (0.1-0.6); Monocytes Percent Auto 7.4 % (2.6-8.5); Neutrophils Absolute Auto 2.6 K/mm3 (1.3-6.7); Neutrophils Percent Auto 57.2 % (45.5-73.1); Platelet Count Result 213 k/mm3 (150-375); Red Blood Count 4.69 M/mm3 (4.2-5.4); White Blood Count 4.6 K/mm3 (4.5-10.0)
[2024-04-28 11:08] LABS: Add Urine Microscopic? NO; Appearance Urine Clear (Clear); Bilirubin Urine Negative (Negative); Blood Urine Negative (Negative); Color Urine Yellow (Yellow); Glucose Urine UA Negative (Negative); Ketones Urine Negative (Negative); Leukocyte Esterase Ur Negative LEU/UL (Negative); Nitrate Urine Negative (Negative); Protein Urine Negative (Negative); Specific Grav Ur 1.028 (1.001-1.035); Urobilinogen Urine 0.2 mg/dL (<2.0); pH Urine 5.5 (5.0-9.0)
[2024-04-28 11:18] LABS: Alanine Aminotransferase 11 U/L (6-35); Albumin Level 4.6 g/dL (3.5-5.1); Alkaline Phosphatase 42 U/L (38-126); Anion Gap 8 mmol/L (4-12); Aspartate Amino Transferase 15 U/L (14-36); Bilirubin,Total 0.8 mg/dL (0.2-1.3); Blood Urea Nitrogen 14 mg/dL (7-17); Calcium 9.3 mg/dL (8.4-10.2); Carbon Dioxide 26 mmol/L (22-30); Chloride 106 mmol/L (98-107); Cholesterol 197 mg/dL (0-200); Estimated Glomerular Filt Rate > 60; Glucose 94 mg/dL (65-110); HDL Direct 40 mg/dL; Potassium 4.1 mmol/L (3.4-5.0); Sodium 140 mmol/L (137-145); Triglycerides 66 mg/dL (<150)
[2024-04-28 11:29] LABS: LDL Cholesterol Direct 128 mg/dL
[2024-04-28 11:31] LABS: Vitamin D 25 Hydroxy 37.8 ng/mL
[2024-04-28 12:19] LABS: Folic Acid 4.6 ng/mL (2.76->20)
== END 2024-04-28 10:10 | disposition home or self-care (01) ==
PROVIDERS: PCP Family Medicine; Visit Provider Family Medicine
DX: Z00.00 Encounter for general adult medical examination without abnormal findings (principal); R53.83 Other fatigue
CPT/HCPCS: 36415; 80053; 80061; 81003; 82306; 82607; 82746; 84443; 85025

== ENCOUNTER 2024-05-17 10:06 | Outpatient (CLI) | payer BC, SELFPAY ==
--- NOTE | ~2024-05-17 | MR_ITS ---
EXAMINATION: MR lumbar spine wo con DATE: 05/17/2024 10:56 INDICATION: Sciatica, unspecified side. TECHNIQUE: Magnetic resonance imaging (MRI) of the lumbar spine was performed without intravenous con trast. Sequences included sagittal T2-weighted FSE, sagittal T2-weighted FS FSE, sagittal T1-weighted FSE, and axial T2-weighted FSE. COMPARISON: Lumbar spine radiographs 04/17/2024 FINDINGS: Alignment is normal. Vertebral body heights and intervertebral disc heights are normal. The distal spinal cord signal intensity is normal. The conus medullaris is at L1. The following disc lev els are specifically discussed: L1-L2: The disc does not extend beyond the endplate margin. There is no facet joint osteoarthritis. T here is no neural foraminal stenosis. There is no central canal stenosis. L2-L3: The disc does not extend beyond the endplate margin. There is mild bilateral facet joint osteo arthritis. There is no neural foraminal stenosis. There is no central canal stenosis. L3-L4: There is a left foraminal protrusion. There is mild bilateral facet joint osteoarthritis. Ther e is mild left neural foraminal stenosis. There is no central canal stenosis. L4-L5: The disc does not extend beyond the endplate margin. There is mild bilateral facet joint osteo arthritis. There is no neural foraminal stenosis. There is no central canal stenosis. L5-S1: The disc does not extend beyond the endplate margin. There is mild left facet joint osteoarthr itis. There is no neural foraminal stenosis. There is no central canal stenosis. IMPRESSION: 1. Mild lumbar spondylosis. Reviewed, dictated and finalized at location A. STOCK RECORDER IMPRESSION: 1. Mild lumbar spondylosis.
--- OUTSIDE RECORDS SUMMARY | 2024-05-17 10:10 | XMS_ITS | Continuity of Care Document ---
Author Organization [facility] Address [address] [place] [id number] Phone Care Team Providers Care Professional Wrestler Name Role Phone Suki Dunn PT Unavailable Unavailable Procedures Procedure Date Manual Therapy Hot or Cold Pack Therapeutic Exercise Neuromuscular Re-Ed Manual Therapy Therapeutic Exercise Hot or Cold Pack Neuromuscular Re-Ed Hot or Cold Pack Neuromuscular Re-Ed Therapeutic Exercise Manual Therapy Neuromuscular Re-Ed Therapeutic Exercise Hot or Cold Pack Manual Therapy Manual Therapy Therapeutic Exercise Neuromuscular Re-Ed Hot or Cold Pack Hot or Cold Pack Therapeutic Exercise Manual Therapy Neuromuscular Re-Ed Therapeutic Exercise Neuromuscular Re-Ed Manual Therapy Manual Therapy Neuromuscular Re-Ed Therapeutic Exercise Hot or Cold Pack Neuromuscular Re-Ed Therapeutic Exercise Hot or Cold Pack Manual Therapy Hot or Cold Pack Manual Therapy Therapeutic Exercise Neuromuscular Re-Ed Therapeutic Exercise Neuromuscular Re-Ed Hot or Cold Pack Manual Therapy Neuromuscular Re-Ed Manual Therapy Hot or Cold Pack Therapeutic Exercise Manual Therapy Neuromuscular Re-Ed Hot or Cold Pack Therapeutic Exercise Therapeutic Exercise Manual Therapy Neuromuscular Re-Ed Hot or Cold Pack Therapeutic Exercise Hot or Cold Pack Neuromuscular Re-Ed Manual Therapy Therapeutic Exercise Hot or Cold Pack Manual Therapy Neuromuscular Re-Ed Manual Therapy Hot or Cold Pack Therapeutic Exercise Neuromuscular Re-Ed Hot or Cold Pack Manual Therapy Neuromuscular Re-Ed Therapeutic Exercise Therapeutic Exercise Hot or Cold Pack Neuromuscular Re-Ed Manual Therapy Therapeutic Exercise Neuromuscular Re-Ed Hot or Cold Pack Manual Therapy Manual Therapy Neuromuscular Re-Ed Hot or Cold Pack Therapeutic Exercise Hot or Cold Pack Therapeutic Exercise Manual Therapy Neuromuscular Re-Ed Manual Therapy Electrical Stimulation Hot or Cold Pack Therapeutic Exercise Manual Therapy Therapeutic Exercise Hot or Cold Pack Hot or Cold Pack Therapeutic Exercise Manual Therapy Manual Therapy Hot or Cold Pack Therapeutic Exercise Therapeutic Exercise Hot or Cold Pack Manual Therapy Hot or Cold Pack Therapeutic Exercise Manual Therapy Therapeutic Exercise Hot or Cold Pack Manual Therapy Therapeutic Exercise Hot or Cold Pack Manual Therapy Therapeutic Exercise Hot or Cold Pack PT Evaluation Therapeutic Exercise Hot or Cold Pack Advance Directives Directive Yes / No Effective Date File Name No Information Encounters Encounter Description Practice Location Reason(s) For Visit Diagnoses Date Provider Providers Copied on Encounter [facility], [address] [place] [employer] [address] [place] [address], [id number], tel:[phone] [facility] No Information 6-201 6 Cow[place] Suki. . [facility], [address] [address], [id number], tel:[phone] [facility] No Information Sep-1 0-201 6 [place] Suki. . Referring Provider: Clif Hardwick, [address] [address], [place], [address]. tel:[phone] [facility], [facility] [address], [id number], tel:[phone] [facility] No Information Sep-0 6-201 6 [place] Suik. . Referring Provider: Clif Hardwick, [address] [address], [place], [address]. tel:[phone] [address] [address], [id number], tel:[phone] [facility] No Information Sep-0 1-201 6 Mona Suki. . Referring Provider: Clif Hardwick [address] [address], [place], [address]. tel:[phone], [address], [id number], tel:[phone] [facility] No Information 2 5-201 6 Mona Suki. . Referring Provider: Clif Hardwick, [address] [facility] [address], [place], [address]. tel:[phone] [employer] [facility], [address] [facility] [address], [place], [id number], [place] tel:[phone] [facility] No Information Aug-2 3-201 6 [place] Suki. . Referring Provider: Clif Hardwick, [address] [facility] [address], [place], [address]. tel:[phone] [employer] [facility], [address] [facility] [address], [place], [place], [id number], [place] tel:[phone] [facility] No Information Nov-1 8-201 6 [place] Suki. . Referring Provider: Clif Hardwick, [address] [address], [place], [address]. tel:[phone] [facility], [address], [id number], [place] tel:[phone] [facility] No Information Nov-1 7-201 6 Jadyn Cat. . Referring Provider: Clif Hardwick, [address] [address], [place], [address]. tel:[phone] [employer] [facility], [address], [id number], [place] tel:[phone] [facility] No Information Nov-1 1-201 6 Mona Suki. . Referring Provider: Clif Hardwick [address] [address], [place], [address]. tel:[phone] [employer] [facility], [address] [facility] [address], [id number], [place] tel:[phone] [facility] No Information Aug-0 9-201 6 [place] Suki. . Referring Provider: Clif Hardwick [address] [facility] [address], [place], [address]. tel:[phone] [employer] [facility], [address] [facility] [address], [place], [id number], [place] tel:[phone] [facility] No Information Aug-0 4-201 6 Mona Suki. . Referring Provider: Clif Hardwick, [address] [facility], [place], [address]. tel:[phone] [facility], [address] [facility] [address], [place], [place], [id number], tel:[phone] [facility] No Information Nov-0 2-201 6 Cow[place] Suki. . Referring Provider: Clif Hardwick, [address] [facility] [address], [place], [address]. tel:[phone] [facility], [address], [place], [place], [id number], [place] tel:[phone] [facility] No Information Oct-2 9-201 6 Cow[place] Suki. . Referring Provider: Clif Hardwick, [address] [facility] [address], [place], [address]. tel:[phone] [facility], [address] [facility] [address], [place], [id number], [place] tel:[phone] [facility] No Information Oct-2 6-201 6 [place] Suki. . Referring Provider: Clif Hardwick, [address] [facility] [address], [place], [address]. tel:[phone] [facility], [address] [facility] [address], [place], [place], [id number], tel:[phone] [facility] No Information Oct-2 1-201 6 [place] Suki. . Referring Provider: Clif Hardwick, [address] [facility] [address], [place], [address]. tel:[phone] [facility], [address] [facility], [place], [place], [id number], [place] tel:[phone] [facility] No Information Oct-2 0-201 6 Mona Suki. . Referring Provider: Clif Hardwick, [address] [facility] [address], [place], [address]. tel:[phone] [employer] [facility], [address] [facility] [address], [id number], [place] tel:[phone] [facility] No Information 8-201 6 Cow[place] Suki. . Referring Provider: Clif Hardwick, [address] [facility] [address], [place], [address]. tel:[phone] [facility], [address] [facility] [address], [place], [place], [id number], tel:[phone] [facility] No Information 5-201 6 Cow[place] Suki. . Referring Provider: Clif Hardwick, [address] [facility] [address], [place], [address]. tel:[phone] [employer] [facility], [address] [facility] [address], [place], [place], [id number], [place] tel:[phone] [facility] No Information 3-201 6 Mona Suki. . Referring Provider: Clif Hardwick, [address] [facility] [address], [place], [address]. tel:[phone] [employer] [facility], [address] [facility] [address], [place], [place], [id number], [place] tel:[phone] [facility] No Information 1-201 6 [place] Suki. . Referring Provider: Clif Hardwick, [address] [facility] [address], [place], [address]. tel:[phone] [employer] [facility], [address] [facility] [address], [place], [place], [id number], tel:[phone] [facility] No Information 8-201 6 Cow[place] Suki. . Referring Provider: Clif Hardwick, [address] [facility] [address], [place], [address]. tel:[phone] [employer] [facility], [address] [facility] [address], [place], [place], [id number], [place] tel:[phone] [facility] No Information 7-201 6 Cow[place] Suki. . Referring Provider: Clif Hardwick, [address] [facility] [address], [place], [address]. tel:[phone] [employer] [facility], [address] [facility] [address], [place], [place], [id number], [place] tel:[phone] [facility] No Information Oct-0 5-201 6 Cow[place] Suki. . Referring Provider: Clif Hardwick, [address] [facility] [address], [place], [address]. tel:[phone] [employer] [facility], [address] [facility], [place], [place], [id number], tel:[phone] [facility] No Information Oct-0 1-201 6 Cow[place] Suki. . Referring Provider: Clif Hardwick, [address] [facility] [address], [place], [address]. tel:[phone] [employer] [facility], [address] [facility] [address], [place], [place], [id number], [place] tel:[phone] [facility] No Information Sep- 9-201 6 Cow[place] Suki. . Referring Provider: Clif Hardiwck, [address] [facility] [address], [place], [address]. tel:[phone] [employer] [facility], [address] [facility] [address], [place], [id number], [place] tel:[phone] [facility] No Information Sep-2 7-201 6 Mona Suki. . Referring Provider: Clif Hardwick, [address] [facility] [address], [place], [address]. tel:[phone] [employer] [facility], [address] [facility] [address], [place], [id number], tel:[phone] [facility] No Information Sep-2 5-201 6 Mona Suki. . Referring Provider: Clif Hardwick, [address] [facility] [address], [place], [address]. tel:[phone] [employer] [facility], [address] [facility] [address], [place], [place], [id number], [place] tel:[phone] [facility] No Information Sep-2 4-201 6 Cow[place] Suki. . Referring Provider: Clif Hardwick, [address] [facility] [address], [place], [address]. tel:[phone] [facility], [address], [id number], tel:[phone] [facility] No Information Sep-2 2-201 6 Mona Suki. . Referring Provider: Clif Hardwick, [address] [address], [place], [address]. tel:[phone] [employer] [facility], [address] [place] [address], [id number], tel:[phone] [facility] No Information Sep-1 6-201 6 Mona Suki. . Referring Provider: Clif Hardwick, [facility] [address] [address], [place], [address]. tel:[phone] [employer] [facility], [address] [place] [address], [id number], tel:[phone] [facility] No Information 5-201 6 [place] Suki. . Referring Provider: Clif Hardwick [address] [address], [place], [address]. tel:[phone] [employer] [facility], [address] [place] [address], [id number], [place] tel:[phone] [facility] No Information 3-201 6 Mona Suki. . Referring Provider: Clif Hardwick, [address] [address], [place], [address]. tel:[phone] [facility], [address] [place] [address], [id number], [place] tel:[phone] [facility] Status post rotator cuff repairAcute pain of right shoulderShoulder joint stiffness, right Jagjit- 1-201 6 Cow[place] Suki. . Referring Provider: Clif Hardwick [address] [address], [place], [address]. tel:[phone] Family History Family Member Type Diagnosis Age At Onset No Information Payers Payer name Insurance type Covered constitution party ID Melissa estrada(s) [facility] [id number] Social History Type Description Quantity Date Captured Comments Sex Female Smoking Status No Information Chief Complaint And Reason For Visit No Information Reason For Referral Reason For Referral No Information History Of Present Illness Encounter Date Complaint History Of Prese nt Illness No Information Functional Status Date Functional Assessmen t No Information Instructions Date Instruction Additional Infor mation No Information Assessments Type Assessment Date No Information Patient Care Teams Name Effective Dates (start - stop) Status Members No Information
--- OUTSIDE RECORDS SUMMARY | 2024-05-17 10:10 | XMS_ITS | Patient Health Summary ---
Author Organization [facility] Address [address] [place] [address] Care Team Providers Care Dial Printer Name Role Phone Pcp, Armando Depauramesh Im-Fm Primary Care Provider Un available Note from [facility],non-owned Affiliates and Associated Physician Practices is amultiple site organization consisting of ambulatory clinics and hospital sitesin [place], [place], [place] and [place]. This disclosure is being madepursuant to the Care Everywhere program and may not contain all information available regarding this patient. Last updated 18.[facility] Social History Tobacco Use Types Packs/Day Years Used Date Smoking Tobacco: Never Assessed Sex and Gender Information Value Date Recorded Sex Assigned at Not on file Gender Identity Not on file Sexual Orientation Not on file Procedures * DERMATOPATHOLOGY(Performed 11/26/2019) * DERMATOPATH TECHNICAL REPORT(Performed 07/18/2019) Results * DERMATOPATHOLOGY (11/26/2019 12:00 AM CDT) Case Report Dermatopathology Report ? Case: [id number] ? Authorizing Provider: ??Zeynep Moran MD ? Collected: ? 11/26/2019 12:00 AM ? Ordering Location: ? [facility] ?Received: ?11/27/2019 02:14 PM ? Pathologist: ? Rosey Degroot MD ? Specimen: ?Skin, right shoulder ? 0 12:28 PM CDT DERMATOPATHOLOGY LABORATORY Final Diagnosis Specimen A. SKIN, right shoulder: COMPOUND MELANOCYTIC NEVUS (D22.61) 0 12:28 PM T DERMATOPATHOLOGY LABORATORY Clinical History R/O nevus, irritated. 0 12:28 PM CDT DERMATOPATHOLOGY LABORATORY Gross Description Specimen A: Received is one formalin filled container labeled with the patient's name and designated right shoulder. The specimen consists of a shave biopsy measuring [id number], bisected. Jar 0. 0 12:28 PM CDT DERMATOPATHOLOGY LABORATORY Microscopic Description Specimen A. SKIN, right shoulder: There are nests of melanocytes at the dermal-epidermal junction and within the dermis. 0 12:28 PM CDT DERMATOPATHOLOGY LABORATORY Disclaimer An external and internal positive and negative controls are appropriate for the histochemical, immunohistochemical and immunofluorescence stain(s) in this case (if any), except where stated explicitly. The performance characteristics of the stain(s) cited in this report were developed and its performance characteristic determined by the Dermatopathology Laboratory at [facility], directed by Dr. Vera Degroot. These tests need not be, and therefore are not, approved by the [place] Food and Drug Administration. The tests are used for clinical purposes. Billing Codes Specimen Charges Stain Charges 90356 1 0 12:28 PM CDT DERMATOPATHOLOGY LABORATORY Embedded Images 0 12:28 PM CDT DERMATOPATHOLOGY LABORATORY Pathology/Cytolog y TISSUE SPECIMEN FROM SKIN / Unknown 11/26/2019 11/27/2019 2:14 PM CDT Zeynep Moran MD LAB - PATHOLOGY/CYT OLOGY ORDERABLES DERMATOPATHOLOGY LABORATORY [facility] - Department of Dermatology [facility]/[address] [phone] * DERMATOPATH TECHNICAL REPORT (07/18/2019 12:00 AM CDT) Case Report Dermatopathology Report ? Case: [id number] ? Authorizing Provider: ??Zeynep Moran MD ? Collected: ? 07/18/2019 12:00 AM ? Ordering Location: ? [facility] ?Received: ?07/21/2019 08:01 AM ? Pathologist: ? Eve Juárez MD ? Specimens: ?? A) - Skin, left chin ? B) - Skin, right mid back ? 0 11:50 AM CDT DERMATOPATHOLOGY LABORATORY Clinical History A-B: R/O Nevus, growing, irritated. 0 11:50 AM CDT DERMATOPATHOLOGY LABORATORY Gross Description Specimen A: Received is one formalin filled container labeled with the patient's name and designated left chin. The specimen consists of a shave (3 pieces) measuring [id number], 4n5l7vw, & 0r4h0pu. Jar 0. Specimen B: Received is one formalin filled container labeled with the patient's name and designated right mid back. The specimen consists of a shave measuring [id number]. Jar 0. [facility] Dermatopathology Laboratory performed the technical component only. 0 11:50 AM CDT DERMATOPATHOLOGY LABORATORY Embedded Images 0 11:50 AM CDT DERMATOPATHOLOGY LABORATORY DISCLAIMER An external and internal positive and negative controls are appropriate for the histochemical, immunohistochemical and immunofluorescence stain(s) in this case (if any), except where stated explicitly. The performance characteristics of the stain(s) cited in this report were developed and its performance characteristic determined by the Dermatopathology Laboratory at [facility], directed by Dr. Vera Degroot. These tests need not be, and therefore are not, approved by the [place] Food and Drug Administration. The tests are used for clinical purposes. 0 11:50 AM CDT DERMATOPATHOLOGY LABORATORY Pathology/Cytology TISSUE SPECIMEN FROM SKIN / Unknown 07/18/2019 07/21/2019 8:01 AM CDT Miscellaneous samples (specimen) TISSUE SPECIMEN FROM SKIN / Unknown 07/18/2019 07/21/2019 8:01 AM CDT Zeynep Moran MD LAB - PATHOLOGY/CYT OLOGY ORDERABLES DERMATOPATHOLOGY LABORATORY [facility] - Department of Dermatology [address] [facility] [address] [place] [address], [facility] [phone] Care Teams Dial Printer Relationship Specialty Start Date End Date Armando Mcnally-Fm PCP - General 11/10/22
--- OUTSIDE RECORDS SUMMARY | 2024-05-17 10:10 | XMS_ITS | Continuity of Care Document ---
Author Organization [employer] Address [address] [facility] [address] [place] [address] Phone Care Team Providers Care Mandrel Puller Name Role Phone Tate PT, DPT, CMPT, Ann Marie Unavailable Unav ailable Procedures Procedure Date THERAPEUTIC EXERCISES NEUROMUSCULAR RE-ED MANUAL THERAPY THERAPEUTIC EXERCISES NEUROMUSCULAR RE-ED MANUAL THERAPY HOT/COLD PACK PT RE-EVALUATION THERAPEUTIC EXERCISES NEUROMUSCULAR RE-ED MANUAL THERAPY HOT/COLD PACK THERAPEUTIC EXERCISES NEUROMUSCULAR RE-ED MANUAL THERAPY THERAPEUTIC EXERCISES NEUROMUSCULAR RE-ED MANUAL THERAPY HOT/COLD PACK THERAPEUTIC EXERCISES NEUROMUSCULAR RE-ED MANUAL THERAPY THERAPEUTIC EXERCISES NEUROMUSCULAR RE-ED MANUAL THERAPY HOT/COLD PACK THERAPEUTIC EXERCISES NEUROMUSCULAR RE-ED MANUAL THERAPY HOT/COLD PACK THERAPEUTIC EXERCISES NEUROMUSCULAR RE-ED MANUAL THERAPY THERAPEUTIC EXERCISES NEUROMUSCULAR RE-ED MANUAL THERAPY HOT/COLD PACK PT EVALUATION THERAPEUTIC EXERCISES NEUROMUSCULAR RE-ED MANUAL THERAPY HOT/COLD PACK Advance Directives Directive Yes / No Effective Date File Name No Information Encounters Encounter Description Practice Location Reason(s) For Visit Diagnoses Date Provider Providers Copied on Encounter [facility], [address] [address], [place], [place], [id number], tel:[phone] [place] No Information August-2 7-201 5 Tate Ann Marie. . [facility], [address], [id number], [place] tel:[phone] [place] No Information August-1 4-201 5 Tate Ann Marie. . Referring Provider: Clif Hardwick, [address] [address], [place], [address]. tel:[phone] [facility], [address], [id number], tel:[phone] [place] No Information August- 3-201 5 Enmanuel Da Silva. [address] [place] [address], [address], [place]. tel:[phone] Referring Provider: Clif Hardwick, [address] [address], [place], [address]. tel:[phone] [facility], [address], [id number], [place] tel:[phone] [place] No Information May-0 7-201 5 Tate Ann Marie. . Referring Provider: Clif Hardwick, [address] [address], [place], [address]. tel:[phone] [facility], [address], [id number], [place] tel:[phone] [place] No Information May-0 5-201 5 Tate Ann Marie. . Referring Provider: Clif Hardwick, [address] [address], [place], [address]. tel:[phone] [facility], [address] [address], [place], [place], [id number], [place] tel:[phone] [place] No Information Jul-2 9-201 5 Tate Ann Marie. . Referring Provider: Clif Hardwick, [address] [facility] [address], [place], [address]. tel:[phone] [facility], [address], [place], [place], [id number], [place] tel:[phone] [place] No Information Jul-2 8-201 5 Tate Ann Marie. . Referring Provider: Clif Hardwick, [address] [facility] [address], [place], [address]. tel:[phone] [facility], [address] [facility] [address], [place], [place], [id number], [place] tel:[phone] [place] No Information Jul-2 3-201 5 Tate Ann Marie. . Referring Provider: Clif Hardwick, [address] [facility] [address], [place], [address]. tel:[phone] [facility], [address] [facility], [place], [place], [id number], [place] tel:[phone] [place] No Information 2-201 5 Enmanuel Da Silva. [address] [place] [address], [address], . tel:[phone] Referring Provider: Clif Hardwick, [address] [facility] [address], [place], [address]. tel:[phone] [facility], [address], [place], [place], [id number], [place] tel:[phone] [place] No Information 7-201 5 Tate Ann Marie. . Referring Provider: Clif Hardwick, [address] [facility] [address], [place], [address]. tel:[phone] [facility], [address], [place], [place], [id number], [place] tel:[phone] [place] No Information 4 5 Lea Jesus. . Referring Provider: Clif Hardwick, [address] [facility] [address], [place], [address]. tel:[phone] [employer] [facility], [address] [facility] [address], [place], [place], [id number], [place] tel:[phone] Mer Griffin Brachial neuritis or radiculitis nosRotator cuff (capsule) sprain 0201 5 Antonysarabjitdeny Arik. [address] [place], [address], [place]. tel:[phone] Referring Provider: Clif Hardwick, [address] [facility] [address], [place], [address]. tel:[phone] Family History Family Member Type Diagnosis Age At Onset No Information Payers Payer name Insurance type Covered republican ID Melissa estrada(s) [facility] [id number] Social History Type Description Quantity Date Captured [...]
--- OUTSIDE RECORDS SUMMARY | 2024-05-17 10:10 | XMS_ITS | Clinical Summary ---
Author Organization [facility] Address [address] [place] [address] Care Team Providers Care Line Therapist Name Role Phone Pcp, Verify Primary Care Provider Unavailabl e Social History Tobacco Use Types Packs/Day Years Used Date Smoking Tobacco: Never Assessed Inadequate Housing Answer Date Recorded Social Determinants: Housing (Overall Score Help er) 0 11/27/2018 Sex and Gender Information Value Date Recorded Sex Assigned at Not on file Gender Identity Not on file Sexual Orientation Not on file Last Filed Vital Signs Vital Sign Reading Time Taken Comments Blood Pressure 117/76 02/08/2018 1:12 PM CDT Pulse 80 02/08/2018 1:12 PM CDT Temperature 37.2 ??C (98.9 ??F) 02/08/2018 1:12 PM CD T Respiratory Rate 18 02/08/2018 1:12 PM CDT Oxygen Saturation 98% 02/08/2018 1:12 PM CDT Inhaled Oxygen Concentration - - Weight 61.7 kg (136 lb 2.1 oz) 02/08/2018 1:12 P M CDT Height 160 cm (5' 3 ) 02/08/2018 1:12 PM CDT Body Mass Index 24.11 02/08/2018 1:12 PM CDT Plan of Treatment Health Maintenance Due Date Last Done Comments Depression Screening 1992 Varicella Vaccine (1 of 2 - 13+ 2-dose series) 1993 DTaP/Tdap/Td Vaccine (1 - Tdap) 12/20/1999 Hepatitis B Vaccine (1 of 3 - 19+ 3-dose series) 12/20/1999 Breast Cancer Screening 2020 COVID-19 Vaccine ( - 2023-2 5 season) 2023 Influenza Vaccine (#1) 2023 HPV Vaccine Aged Out No longer eligi ble based on patient's age to complete this topic Hepatitis A Vaccine Aged Out No longe r eligible based on patient's age to complete this topic Meningococcal Serogroup B Vaccine Aged Out No longer eligible based on patient's age to complete this topic Meningococcal Vaccine Aged Out No cindy eric eligible based on patient's age to complete this topic Pneumococcal Vaccine 0-49 Aged Out No longer eligible based on patient's age to complete this topic Care Teams Line Therapist Relationship Specialty Start Date End Date Pcp, Verify PCP - General 10/29/23
--- OUTSIDE RECORDS SUMMARY | 2024-05-17 10:10 | XMS_ITS | Clinical Summary ---
Author Organization [facility] [employer] Address [address] [place] [address] Care Team Providers Care Secondary School Special Ed Teacher Name Role Phone Pcp, Armando Depaul Im-Fm Primary Care Provider Un available Source Comments [facility] [employer],non-owned Affiliates and Associated Physician Practices is amultiple site organization consisting of ambulatory clinics and hospital sitesin [place], [place], [place] and [place]. This disclosure is being madepursuant to the Care Everywhere program and may not contain all information available regarding this patient. Last updated 18.[facility] [employer] Social History Tobacco Use Types Packs/Day Years Used Date Smoking Tobacco: Never Assessed Sex and Gender Information Value Date Recorded Sex Assigned at Not on file Gender Identity Not on file Sexual Orientation Not on file Plan of Treatment Health Maintenance Due Date Last Done Comments LIPID TESTING 1980 MAMMOGRAM 1980 PAP SMEAR 1980 HIV SCREENING 12/20/1995 HEPATITIS C SCREENING 12/15/1998 DTAP/TDAP/TD VACCINES (1 - Tdap) 12/20/1999 HEPATITIS B VACCINE (1 of 3 - 19+ 3-dose series) 12/20/1999 COVID-19 VACCINE ( - 2023-2 5 season) 2023 INFLUENZA VACCINE (#1) 2023 DEPRESSION SCREENING 04/16/2024 ZOSTER VACCINE (1 of 2) 2030 HIB VACCINE Aged Out No longer eligi ble based on patient's age to complete this topic HPV VACCINE Aged Out No longer eligi ble based on patient's age to complete this topic MENINGOCOCCAL (Group B) VACCINE Aged Out No longer eligible based on patient's age to complete this topic MENINGOCOCCAL VACCINE Aged Out No cindy eric eligible based on patient's age to complete this topic PNEUMOCOCCAL VACCINE Aged Out No long er eligible based on patient's age to complete this topic Care Teams [employer] Special Ed Teacher Relationship Specialty Start Date End Date PcpArmando Im-Fm PCP - General 11/10/22
--- OUTSIDE RECORDS SUMMARY | 2024-05-17 10:10 | XMS_ITS | Referral Summary ---
Author Organization [facility] Address [address] [place] [address] Care Team Providers Care Trimming Assembler Name Role Phone Pcp, Verify Primary Care [...] 02/08/2018 1:12 PM CDT Plan of Treatment Not on file Care Teams Trimming Assembler Relationship Specialty Start Date End Date Pcp, Verify PCP - General 10/29/23
--- OUTSIDE RECORDS SUMMARY | 2024-05-17 10:10 | XMS_ITS | Clinical Summary ---
Author Organization [facility] Address [address] [place] [address] Phone Care Team Providers Care Quality Control Expert Name Role Phone Alice Vasquez MD Primary Care Provider Trevor Aquino MD Unavailable [phone] Allergies No known active allergies Medications Premarin 1.25 mg tablet Take 1 tablet (1.25 mg total) by mouth daily 11/15/2022 Active Active Problems Problem Noted Date Diagnosed Date ASCUS with positive high risk HPV cervical 10/12 Overview (02/20/2022): colpo wnl. Repeat pap . Resolved Problems Problem Noted Date Diagnosed Date Resolved Date Neuropathy of right suprascapular nerve 02/14/2019 02/20/2022 History of repair of right rotator cuff 02/18/2016 02/20/2022 Vitamin D deficiency 02/18/2016 022 Immunizations Name Administration Dates Next Due Influenza, Quadrivalent, Spl it, Preservative Free, Intramuscular 02/18/2016 Influenza, Trivalent, Preservative Free, Intramu scular 01/21/2014,01/16/2012 Tdap 08/16/2016 Surgical History Surgery Date Site/Laterality Comments SHOULDER ARTHROSCOPY Right RTC repar, distal clavicle excision APPENDECTOMY Medical History Medical History Date Comments Rotator cuff disorder, right Ovarian cyst Neuropathy of right suprascapular nerve 9 History of repair of right rotator cuff 6 Family History Medical History Relation Name Comments No Known Problems Father No Known Problems Mother Breast cancer Neg Hx Cervical cancer Neg Hx Colon cancer Neg Hx Ovarian cancer Neg Hx Uterine cancer Neg Hx Relation Name Status Comments Father Mother Social History Tobacco Use Types Packs/Day Years Used Date Smoking Tobacco: Never Smokeless Tobacco: Never Tobacco Cessation:Counseling Given: Not Answered AUDIT-C Answer Date Recorded Q1: How often do you have a drink containing alcohol? Monthly or less 02/20/2022 Q2: How many drinks containi ng alcohol do you have on a typical day when you are drinking? Patient does not drink Q3: How often do you have si x or more drinks on one occasion? Never 02/20/2022 PHQ-2 Answer Date Recorded PHQ-2 Total Score (If total score is 3 or more points, staff should administer the PHQ-9) 0 02/20/2022 Personal Safety Answer Date Recorded Getting School Help Needed Not on file 04/08 Comments No Sex and Gender Information Value Date Recorded Sex Assigned at Not on file Legal Sex Female 6:50 AM CDT Gender Identity Not on file Sexual Orientation Not on file Obstetrics History Para Term AB IAB SAB Ectopic Multiple Livin g Live Births 1 1 1 1 1 Date Outcome GA Total Labor Labor/2nd/3rd Weight Sex Type Anes PTL Peace A1 A5 Name Clin 2016 Term 37w 3d 6h 27m 5h 31m/0h 53m/0h 03m 2.293 kg (5 lb 0.9 oz) M Vag-S pont Epidur al N Livin g 8 9 Deborah AMARO HEVER BOY Grace Gupta ick DO Complications: Intolera nce Delivery [facility] Last Filed Vital Signs Vital Sign Reading Time Taken Comments Blood Pressure 118/68 02/07/2023 3:36 PM CDT Pulse 69 02/07/2023 3:36 PM CDT Temperature - - Respiratory Rate - - Oxygen Saturation - - Inhaled Oxygen Concentration - - Weight 65.8 kg (145 lb) 02/07/2023 3:36 PM CDT Height 160 cm (5' 3 ) 02/07/2023 3:36 PM CDT Body Mass Index 25.69 02/07/2023 3:36 PM CDT Plan of Treatment Health Maintenance Due Date Last Done Comments Breast Cancer Screening-Mammogram 1980 Cervical Cancer Screening 1980 Hepatitis C Screening 1980 Hepatitis B Screening 1998 Depression Screening 02/20/2023 02/20/2022 Regular Well Visit/Exam 18-64 02/20/2023 02/20/2022 Influenza Vaccine (#1) 2023 6, 01/21/2014, 01/16/2012 DTaP/Tdap/Td Vaccine (2 - Td or Tdap) 08/16/2026 08/16/2016 HPV Vaccines Aged Out No longer eligi ble based on patient's age to complete this topic Pneumococcal vaccine <65 Aged Out No longer eligible based on patient's age to complete this topic Varicella Vaccines Discontinued Insurance COUNT INCLUDES THE [facility] SIG [id number] [facility] Care Teams Quality Control Expert Relationship Specialty Start Date End Date Alice Vasquez MD PCP - General Family Practice 02/20/22 Trevor Aquino MD [address] [id number] Referring Physician Obstetrics and Gynecology 02/20/22
--- OUTSIDE RECORDS SUMMARY | 2024-05-17 10:10 | XMS_ITS | Encounter Summary ---
Author Organization [facility] Address [address] [facility] [place] [address] Care Team Providers Care Manager Of Radiology Name Role Phone Alice Vasquez MD Primary Care Provider [phone] [facility], [facility] - Primary Care Provider Un available Encounter Details Date Type Department Care Team (Late st Contact Info) Description 07/21/2019 Lab Requisition [facility] Care DermPath Lab [address] [facility], [place] [address] Zeynep Moran MD [address] [facility] [address] [place] [address] Social History Tobacco Use Types Packs/Day Years Used Date Smoking Tobacco: Never Assessed Sex and Gender Information Value Date Recorded Sex Assigned at Not on file Gender Identity Not on file Sexual Orientation Not on file documented as of this encounter Plan of Treatment Not on file documented as of this encounter Procedures Procedure Name Priority Date/Time Associated Diagnosis Comments DERMATOPATH TECHNICAL REPORT Routine 07/18/2019 12:00 AM CDT documented in this encounter Results * DERMATOPATH TECHNICAL REPORT (07/18/2019 12:00 AM CDT) Case Report Dermatopathology Report ? Case: [id number] ? Authorizing Provider: ??Zeynep Moran MD ? Collected: ? 07/18/2019 12:00 AM ? Ordering Location: ? [facility] DermPath Lab ?Received: ?07/21/2019 08:01 AM ? Pathologist: ? Eve Juárez MD ? Specimens: ?? A) - Skin, left chin ? B) - Skin, right mid back ? 0 11:50 AM T DERMATOPATHOLOGY LABORATORY Clinical History A-B: R/O Nevus, growing, irritated. 0 11:50 AM T DERMATOPATHOLOGY LABORATORY Gross Description Specimen A: Received is one formalin filled container labeled with the patient's name and designated left chin. The specimen consists of a shave (3 pieces) measuring [id number], 0w4j5mo, & 5i3f5vh. Jar 0. Specimen B: Received is one formalin filled container labeled with the patient's name and designated right mid back. The specimen consists of a shave measuring [id number]. Jar 0. [facility] Dermatopathology Laboratory performed the technical component only. 0 11:50 AM [facility] DERMATOPATHOLOGY LABORATORY Embedded Images 0 11:50 AM T DERMATOPATHOLOGY LABORATORY DISCLAIMER An external and internal positive and negative controls are appropriate for the histochemical, immunohistochemical and immunofluorescence stain(s) in this case (if any), except where stated explicitly. The performance characteristics of the stain(s) cited in this report were developed and its performance characteristic determined by the Dermatopathology Laboratory at [facility], directed by Dr. Vera Degroot. These tests [...] LAB - PATHOLOGY/CYT OLOGY ORDERABLES DERMATOPATHOLOGY LABORATORY [facility] - Department of Dermatology [address] [place] [address], 5th Floor Lab [address] [phone] documented in this encounter Visit Diagnoses Not on filedocumented in this encounter Care Teams Manager Of Radiology Relationship Specialty Start Date End Date Alice Vasquez MD [address] [facility] [address] [place] [address] PCP - General 03/16/22 11/09/22 PcpArmando Depatifl Im-Fm PCP - General 11/10/22 documented as of this encounter
--- OUTSIDE RECORDS SUMMARY | 2024-05-17 10:10 | XMS_ITS | Referral Summary ---
Author Organization [facility] Address [address] [place] [address] Care Team Providers Care Furniture Sales Associate Name Role Phone Armando Mcnally-Fm Primary Care Provider Un available Source Comments [facility],non-owned Affiliates and Associated Physician Practices is amultiple site organization consisting of ambulatory clinics and hospital sitesin [place], [place], [place] and [place]. This disclosure is being madepursuant to the Care Everywhere program and may not contain all information available regarding this patient. Last updated 18.[facility] [employer] Social History Tobacco Use Types Packs/Day Years Used Date Smoking Tobacco: Never Assessed Sex and Gender Information Value Date Recorded Sex Assigned at Not on file Gender Identity Not on file Sexual Orientation Not on file Plan of Treatment Not on file Care Teams Furniture Sales Associate Relationship Specialty Start Date End Date PcpArmando PCP - General 11/10/22
--- OUTSIDE RECORDS SUMMARY | 2024-05-17 10:10 | XMS_ITS | Encounter Summary ---
Author Organization [facility] Address [address] [place] [address] Care Team Providers Care Utility Bill Collector Name Role Phone Alice Vasquez MD Primary Care Provider [phone] [facility], [facility] - Primary Care Provider Un available Encounter Details Date Type Department Care Team (Late st Contact Info) Description 11/27/2019 Lab Requisition [facility] Care DermPath Lab [address] [facility] [place] [address] Zeynep Moran MD [address] [facility] 3 [place] [address] Social History Tobacco Use Types Packs/Day Years Used Date Smoking Tobacco: Never Assessed Sex and Gender Information Value Date Recorded Sex Assigned at Not on file Gender Identity Not on file Sexual Orientation Not on file documented as of this encounter Plan of Treatment Not on file documented as of this encounter Procedures Procedure Name Priority Date/Time Associated Diagnosis Comments DERMATOPATHOLOGY Routine 11/26/2019 12:0 0 AM CDT documented in this encounter Results * DERMATOPATHOLOGY (11/26/2019 12:00 AM CDT) Case Report Dermatopathology Report ? Case: [id number] ? Authorizing Provider: ??Zeynep Moran MD ? Collected: ? 11/26/2019 12:00 AM ? Ordering Location: ? [facility] DermPath Lab ?Received: ?11/27/2019 02:14 PM ? [...] specimen consists of a shave biopsy measuring [id number], bisected. Jar 0. 0 12:28 PM CDT [...] characteristic determined by the Dermatopathology Laboratory at [facility], directed by Dr. Vera Degroot. These tests need not be, and therefore are not, approved by the [place] Food and Drug Administration. The tests are used for clinical purposes. Billing Codes Specimen Charges Stain Charges 56151 1 0 12:28 PM CDT DERMATOPATHOLOGY LABORATORY Embedded Images 0 12:28 PM CDT DERMATOPATHOLOGY LABORATORY Pathology/Cytolog y TISSUE SPECIMEN FROM SKIN / Unknown 11/26/2019 11/27/2019 2:14 PM CDT Zeynep Moran MD LAB - PATHOLOGY/CYT OLOGY ORDERABLES DERMATOPATHOLOGY LABORATORY [facility] - Department of Dermatology [facility]/[address] [phone] documented in this encounter Visit Diagnoses Not on filedocumented in this encounter Care Teams Utility Bill Collector Relationship Specialty Start Date End Date Alice Vasquez MD [address] [facility] [address] [place] [address] PCP - General 03/16/22 11/09/22 PcpArmando - PCP - General 11/10/22 documented as of this encounter
--- OUTSIDE RECORDS SUMMARY | 2024-05-17 10:10 | XMS_ITS | Referral Summary ---
Author Organization [facility] Address [address] [place] [address] Phone Care Team Providers Care Dress Operator Name Role Phone Alice Vasquez MD Primary Care Provider Trevor Aquino MD Unavailable [phone] Allergies No known active allergies Medications Premarin [...] Preservative Free, Intramu scular 01/21/2014,01/16/2012 Tdap 08/16/2016 Social History Tobacco Use Types Packs/Day Years [...] 02/07/2023 3:36 PM CDT Plan of Treatment Not on file Insurance [employer] SIG [id number] [facility] [place] [employer] [place] Care Teams Dress Operator Relationship Specialty Start Date End Date Alice Vasquez MD PCP - General Family Practice 02/20/22 Trevor Aquino MD [address] [facility] [address] [place] [address] Referring Physician Obstetrics and Gynecology 02/20/22
== END 2024-05-17 10:07 | disposition home or self-care (01) ==
PROVIDERS: PCP Family Medicine; Visit Provider Family Medicine
DX: M47.896 Other spondylosis, lumbar region (principal)
CPT/HCPCS: 72148

== ENCOUNTER 2025-01-13 10:18 | Outpatient (CLI) | payer BC, SELFPAY ==
--- OUTSIDE RECORDS SUMMARY | 2025-01-13 11:07 | XMS_ITS | Clinical Summary ---
Author Organization [facility] Address [address] [place] [address] Phone Care Team Providers Care Cardiothoracic Icu Rn Name Role Phone Alice Vasquez MD Primary Care Provider Trevor Aquino MD Unavailable Allergies No known active allergies Medications Premarin [...] 02/20/2022 Vitamin D deficiency 02/18/2016 022 Immunizations Immunization Administration Dates Next Due Influenza, Quadrivalent, Spl [...] Epidur al N Livin g 8 9 WESLEY ALISHA,Deborah HEVER BOY Grace glez Philendy ick DO Complications: Intolera nce Delivery [facility] Last Filed Vital Signs Vital Sign Reading Time Taken Comments Blood Pressure 118/68 02/07/2023 3:36 PM CDT Pulse 69 02/07/2023 3:36 PM CDT Temperature - - Respiratory Rate - - Oxygen Saturation - - Inhaled Oxygen Concentration - - Weight 65.8 kg (145 lb) 02/07/2023 3:36 PM CDT Height 160 cm (5' 3) 02/07/2023 3:36 PM CDT Body Mass Index 25.69 02/07/2023 3:36 PM CDT Plan of Treatment Health Maintenance Due Date Last Done Comments Breast Cancer Screening-Mammogram 1980 Cervical Cancer Screening 1980 Hepatitis C Screening 1980 Hepatitis B Screening 1998 HPV Vaccines (1 - 3-dose SCDM series) 12/20/2007 Depression Screening 02/20/2023 02/20/2022 Regular Well Visit/Exam 18-64 02/20/2023 02/20/2022 Influenza Vaccine (#1) 2024 6, 01/21/2014, 01/16/2012 DTaP/Tdap/Td Vaccine (2 - Td or Tdap) 08/16/2026 08/16/2016 Pneumococcal vaccine <65 Aged Out No longer eligible based on patient's age to complete this topic Varicella Vaccines Discontinued [place] Care Teams Cardiothoracic Icu Rn Relationship Specialty Start Date End Date Alice Vasquez MD PCP - General Family Practice 02/20/22 Trevor Aquino MD [address] [facility] [address] [place] [address] Referring Physician Obstetrics and Gynecology 02/20/22
--- OUTSIDE RECORDS SUMMARY | 2025-01-13 11:07 | XMS_ITS | Clinical Summary ---
Author Organization [facility] Address [address] [place] [address] Care Team Providers Care Vp Treasurer Name Role Phone Pcp, Armando Depaul Im-Fm Primary Care Provider Un available Source Comments [facility],non-owned Affiliates and Associated Physician Practices is amultiple site organization consisting of ambulatory clinics and hospital sitesin [place], [place], [place] and [place]. This disclosure is being madepursuant to the Care Everywhere program and may not contain all information available regarding this patient. Last updated 18.[facility] Social History Tobacco Use Types Packs/Day Years Used Date Smoking Tobacco: Never Assessed Comments Unknown Sex and Gender Information Value Date Recorded Sex Assigned at Not on file Legal Sex Female 11:45 AM CDT Gender Identity Not on file Sexual Orientation Not on file Plan of Treatment Health Maintenance Due Date Last Done Comments LIPID TESTING 1980 MAMMOGRAM 1980 HIV SCREENING 12/20/1995 HEPATITIS C SCREENING 12/15/1998 DTAP/TDAP/TD VACCINES (1 - Tdap) 12/20/1999 HEPATITIS B VACCINE (1 of 3 - 19+ 3-dose series) 12/20/1999 HPV VACCINE (1 - 3-dose SCDM series) 12/20/2007 DEPRESSION SCREENING 04/16/2024 COVID-19 VACCINE (1 - 2023-2 5 season) 2024 INFLUENZA VACCINE (#1) 2024 ZOSTER VACCINE (1 of 2) 2030 HIB VACCINE Aged Out No longer eligi ble based on patient's age to complete this topic MENINGOCOCCAL (Group B) VACC INE SHARED DECISION-MAKING Aged Out No longer eligibl e based on patient's age to complete this topic MENINGOCOCCAL GROUPS A/C/Y/W VACCINE Aged Out No longer eligible b ased on patient's age to complete this topic PNEUMOCOCCAL VACCINE Aged Out No long er eligible based on patient's age to complete this topic [facility] Care Teams Vp Treasurer Relationship Specialty Start Date End Date Armando Mcnally Im-Fm PCP - General 11/10/22
--- OUTSIDE RECORDS SUMMARY | 2025-01-13 11:07 | XMS_ITS | Encounter Summary ---
Author Organization [facility] Address [address] [facility] [place] [address] Care Team Providers Care Special Agent Fbi Name Role Phone Alice Vasquez MD Primary Care Provider [phone] [facility] [facility] [place] - Primary Care Provider Un available Encounter Details Date Type Department Care Team (Late st Contact Info) Description 07/21/2019 Lab Requisition [facility] Care DermPath Lab [address], [place] [address] Zeynep Moran MD [address] [facility] 3 [place] [address] Social History Tobacco Use Types Packs/Day Years [...] 12:00 AM CDT) Case Report Dermatopathology Report Case: [id number] Authorizing Provider: Zeynep Moran MD Collected: 07/18/2019 12:00 AM Ordering Location: [facility] Care DermPath Lab Received: 07/21/2019 08:01 AM Pathologist: Eve Juárez MD Specimens: A) - Skin, left chin B) - Skin, right mid back 0 11:50 AM CDT DERMATOPATHOLOGY LABORATORY Clinical History A-B: R/O Nevus, growing, irritated. 0 11:50 AM CDT DERMATOPATHOLOGY LABORATORY Gross Description Specimen A: Received is one formalin filled container labeled with the patient's name and designated left chin. The specimen consists of a shave (3 pieces) measuring 4n3h0ld, 1j6e0yj, & 9i2e1yc. Jar 0. Specimen B: Received is one formalin filled container labeled with the patient's name and designated right mid back. The specimen consists of a shave measuring 7g1h0qe. Jar 0. [facility] Dermatopathology Laboratory performed the technical component only. [...] determined by the Dermatopathology Laboratory at [facility], directed by Dr. Vera Degroot. These tests need not be, and therefore are not, approved by the [place] Food and Drug Administration. The tests are used for clinical purposes. 0 11:50 AM CDT DERMATOPATHOLOGY LABORATORY at 1150 CDT Pathology/Cytology TISSUE SPECIMEN FROM SKIN / Unknown 07/18/2019 07/21/2019 8:01 AM CDT Miscellaneous samples (specimen) TISSUE SPECIMEN FROM SKIN / Unknown 07/18/2019 07/21/2019 8:01 AM CDT Zeynep Moran MD LAB - PATHOLOGY/CYTOLOGY OR DERABLES Final Result DERMATOPATHOLOGY LABORATORY [facility] - Department of Dermatology [address] [place] [address], 5th Floor Lab B [address] [phone] documented in this encounter Visit Diagnoses Not on filedocumented in this encounter Care Teams Special Agent Fbi Relationship Specialty Start Date End Date Alice Vasquez MD [address] [address] PCP - General 03/16/22 11/09/22 PcpArmando Depauramesh - PCP - General 11/10/22 documented as of this encounter
--- OUTSIDE RECORDS SUMMARY | 2025-01-13 11:07 | XMS_ITS | Encounter Summary ---
Author Organization [facility] Address [address] [place] [address] Care Team Providers Care Brass Burnisher Name Role Phone Alice Vasquez MD Primary Care Provider [phone] [facility], [facility] [place] - Primary Care Provider Un available Encounter Details Date Type Department Care Team (Late st Contact Info) Description 11/27/2019 Lab Requisition [facility] Care DermPath Lab [address] [facility] [place] [address] Zeynep Moran MD [address] [facility] 3 [place] [address] Social History Tobacco Use Types Packs/Day Years [...] AM CDT) Case Report Dermatopathology Report Case: [id number] Authorizing Provider: Zeynep Moran MD Collected: 11/26/2019 12:00 AM Ordering Location: [facility] Care DermPath Lab Received: 11/27/2019 02:14 PM Pathologist: Rosey Degroot MD Specimen: Skin, right shoulder 0 12:28 PM CDT DERMATOPATHOLOGY LABORATORY Final Diagnosis Specimen A. SKIN, right shoulder: COMPOUND MELANOCYTIC NEVUS (D22.61) 0 12:28 PM CDT DERMATOPATHOLOGY LABORATORY at 1228 CDT Clinical History R/O nevus, irritated. 0 12:28 PM CDT DERMATOPATHOLOGY LABORATORY Gross Description Specimen A: Received is one formalin filled container labeled with the patient's name and designated right shoulder. The specimen consists of a shave biopsy measuring 3r6e1eb, bisected. Jar 0. 0 12:28 PM CDT [...] determined by the Dermatopathology Laboratory at [facility], directed by Dr. Vera Degroot. These tests need not be, and therefore are not, approved by the [place] Food and Drug Administration. The tests are used for clinical purposes. Billing Codes Specimen Charges Stain Charges 40980 1 0 12:28 PM CDT DERMATOPATHOLOGY LABORATORY Embedded Images 0 12:28 PM CDT DERMATOPATHOLOGY LABORATORY Pathology/Cytolog y TISSUE SPECIMEN FROM SKIN / Unknown 11/26/2019 11/27/2019 2:14 PM CDT us Zeynep Moran MD LAB - PATHOLOGY/CYTOLOGY OR DERABLES Final Result DERMATOPATHOLOGY LABORATORY [facility] - Department of Dermatology [facility] [place] [address], [facility] [phone] documented in this encounter Visit Diagnoses Not on filedocumented in this encounter Care Teams Brass Burnisher Relationship Specialty Start Date End Date Alice Vasquez MD [address] [facility] [address] [place] [address] PCP - General 03/16/22 11/09/22 PcpArmando Depauramesh - PCP - General 11/10/22 documented as of this encounter
[2025-01-13 11:24] LABS: Hematocrit 45.4 % (37.0-47.0); Hemoglobin 15.1 g/dL (12.0-15.0); Mean Corpuscular HGB Conc 33.3 g/dl (32-36); Mean Corpuscular Hemoglobin 32.5 pg (26-34); Mean Corpuscular Volume 97.8 fl (80-100); Platelet Count Result 234 k/mm3 (150-375); Red Blood Count 4.64 M/mm3 (4.2-5.4); White Blood Count 9.7 K/mm3 (4.5-10.0)
[2025-01-13 11:42] LABS: Iron 114 ug/dL (37-170)
[2025-01-13 11:53] LABS: Percent Iron Saturation 31 % (20-50)
[2025-01-13 12:16] LABS: Thyroid Stimulating Hormone Reflex 1.200 uIU/mL (0.465-4.68)
[2025-01-13 12:25] LABS: Ferritin 85.90 ng/mL (6.24-137)
[2025-01-13 12:31] LABS: Vitamin B12 304.0 pg/mL (239-931)
== END 2025-01-13 10:19 | disposition home or self-care (01) ==
LOC: ANHLAB 10:19
PROVIDERS: PCP Family Medicine
DX: R00.2 Palpitations (principal); R42 Dizziness and giddiness
CPT/HCPCS: 36415; 82306; 82607; 82728; 83540; 83550; 84443; 85027

== ENCOUNTER 2025-03-17 09:44 | Outpatient (CLI) | payer BC, SELFPAY ==
--- NOTE | 2025-03-17 09:54 | EST_ITS ---
Patient Info Name: Alena [place] Age: 44 years : 1980 Gender: Female Ht: 63 in Wt: 145 lbs BSA: 1.72 m2 HR: 79 bpm BP: 134 / 83 mmHg Exam Date: 03/17/2025 9:54 AM Patient Status: O Admit Date: 03/17/2025 Exam Type: CA stress test treadmill A treadmill exercise stress test was performed. Staff Referring Physician: Aquiles Hansen DO Attending Provider: Aquiles Hansen DO Exercise Technologist: Tash Ambrose Exercise Physician: Aquiles Hansen DO Summary 1. 1. Negative Bautista exercise stress test for ischemic ST changes by ECG criteria. 2. 2. Good functional capacity, achieving 10 METs of workload. 3. 3. Appropriate HR response to exercise. 4. 4. Appropriate HR recovery at 1 minute post exercise. 5. 5. No imaging with stress testing. 6. 6. Patient informed of the above results. Protocol: Bautista Stress ECG Details Stage: REST Duration (min): 0 min : 58 sec Speed (mph): 0.0 Grade (%): 0 HR (bpm): 81 SBP (mmHg): 134 DBP (mmHg): 83 METS: --- Stage: REST Duration (min): 4 min : 28 sec Speed (mph): 0.0 Grade (%): 0 HR (bpm): 86 SBP (mmHg): 134 DBP (mmHg): 83 METS: --- Stage: STAGE 1 Duration (min): 1 min : 0 sec Speed (mph): 1.7 Grade (%): 10 HR (bpm): 113 SBP (mmHg): 134 DBP (mmHg): 83 METS: --- Stage: STAGE 1 Duration (min): 2 min : 0 sec Speed (mph): 1.7 Grade (%): 10 HR (bpm): 119 SBP (mmHg): 134 DBP (mmHg): 83 METS: --- Stage: STAGE 1 Duration (min): 3 min : 0 sec Speed (mph): 1.7 Grade (%): 10 HR (bpm): 127 SBP (mmHg): 140 DBP (mmHg): 90 METS: --- Stage: STAGE 2 Duration (min): 1 min : 0 sec Speed (mph): 2.5 Grade (%): 12 HR (bpm): 131 SBP (mmHg): 140 DBP (mmHg): 90 METS: --- Stage: STAGE 2 Duration (min): 2 min : 0 sec Speed (mph): 2.5 Grade (%): 12 HR (bpm): 138 SBP (mmHg): 144 DBP (mmHg): 87 METS: --- Stage: STAGE 2 Duration (min): 3 min : 0 sec Speed (mph): 2.5 Grade (%): 12 HR (bpm): 143 SBP (mmHg): 144 DBP (mmHg): 87 METS: --- Stage: STAGE 3 Duration (min): 1 min : 0 sec Speed (mph): 3.4 Grade (%): 14 HR (bpm): 153 SBP (mmHg): 204 DBP (mmHg): 88 METS: --- Stage: STAGE 3 Duration (min): 2 min : 0 sec Speed (mph): 3.4 Grade (%): 14 HR (bpm): 155 SBP (mmHg): 204 DBP (mmHg): 88 METS: --- Stage: STAGE 3 Duration (min): 2 min : 0 sec Speed (mph): 3.4 Grade (%): 14 HR (bpm): 156 SBP (mmHg): 204 DBP (mmHg): 88 METS: --- Stage: RECOVERY Duration (min): 0 min : 59 sec Speed (mph): 0.0 Grade (%): 0 HR (bpm): 123 SBP (mmHg): 119 DBP (mmHg): 32 METS: --- Stage: RECOVERY Duration (min): 1 min : 59 sec Speed (mph): 0.0 Grade (%): 0 HR (bpm): 105 SBP (mmHg): 119 DBP (mmHg): 32 METS: --- Stage: RECOVERY Duration (min): 2 min : 59 sec Speed (mph): 0.0 Grade (%): 0 HR (bpm): 103 SBP (mmHg): 129 DBP (mmHg): 57 METS: --- Stage: RECOVERY Duration (min): 3 min : 32 sec Speed (mph): 0.0 Grade (%): 0 HR (bpm): 97 SBP (mmHg): 129 DBP (mmHg): 57 METS: --- Rest HR: 86 bpm Peak HR: 156 bpm Rest Sys BP: 134 mmHg Peak Sys BP: 204 mmHg Max Pred HR: 176 bpm % Max Pred HR: 89 % Target HR: 150 bpm Max RPP: 31,824 bpm*mmHg Baugh Score: -7 Termination Reason: Reached target heart rate or workload Cardiac Symptoms: Shortness of breath Max ST Seg Deviation: 3.00 mm Total Time: 8 min : 1 sec Rest Odom BP: 83 mmHg Peak Odom BP: 88 mmHg Angina Score: None Total METS: 10.3 Resting ECG Sinus rhythm, IRBBB. Stress ECG No ST changes. Arrhythmias None. Report Signatures
--- OUTSIDE RECORDS SUMMARY | 2025-03-17 10:27 | XMS_ITS | Clinical Summary ---
Author Organization [facility] Address [address] [place] [address] Care Team Providers Care Stock Driver Name Role Phone Pcp, Armando Depaul Im-Fm Primary Care Provider Un available Source Comments [facility],non-owned Affiliates and Associated Physician Practices is amultiple site organization consisting of ambulatory clinics and hospital sitesin [place], [place], [place] and [place]. This disclosure is being madepursuant to the Care Everywhere program and may not contain all information available regarding this patient. Last updated 18.[facility] Social History Tobacco Use Types Packs/Day Years [...] of 3 - 19+ 3-dose series) 12/20/1999 PAP SMEAR 2001 HPV VACCINE (1 - 3-dose SCDM series) 12/20/2007 Cervical Cancer Screening 2010 PAP with HPV 2010 DEPRESSION SCREENING 04/16/2024 COVID-19 VACCINE (1 - 2024-2 6 season) 2024 INFLUENZA VACCINE (#1) 2024 ZOSTER [...] patient's age to complete this topic Insurance [employer] [facility] Care Teams Stock Driver Relationship Specialty Start Date End Date PcpArmando-Fm PCP - General 11/10/22
--- OUTSIDE RECORDS SUMMARY | 2025-03-17 10:27 | XMS_ITS | Clinical Summary ---
Author Organization [facility] Address [address] [place] [address] Phone Care Team Providers Care Territory Supervisor Name Role Phone Alice Vasquez MD Primary [...] DO Complications: Intolera nce Delivery Location[facility] Last Filed Vital Signs Vital Sign [...] complete this topic Varicella Vaccines Discontinued [place] [employer] [place] [employer] [place] Care Teams Territory Supervisor Relationship Specialty Start Date End Date Alice Vasquez MD PCP - General Family Practice 02/20/22 Trevor Aquino MD [address] [facility] [address] [place] [address] Referring Physician Obstetrics and Gynecology 02/20/22
--- OUTSIDE RECORDS SUMMARY | 2025-03-17 10:27 | XMS_ITS | Encounter Summary ---
Author Organization [facility] Address [address] [facility] [place] [address] Care Team Providers Care Nursing Informatics Analyst Name Role Phone Alice Vasquez MD Primary Care Provider [phone] [facility], [facility] - Primary Care Provider Un available Encounter Details Date Type Department Care Team (Late st Contact Info) Description 07/21/[address] [facility] Care DermPath Lab [address] [facility], [place] [address] Zeynep Moran MD [address] [facility] [address] [place] [address] Social History Tobacco Use Types Packs/Day Years [...] AM CDT) Case Report Dermatopathology Report Case: [id number] Authorizing Provider: Zeynep Moran MD Collected: 07/18/2019 12:00 AM Ordering Location: [facility] Care DermPath Lab Received: 07/21/2019 08:01 [...] consists of a shave (3 pieces) measuring 6x5s8br, 2z7d9ee, & 0h2z8ho. Jar 0. Specimen B: Received is one formalin filled container labeled with the patient's name and designated right mid back. The specimen consists of a shave measuring 6b6a5yz. Jar 0. [facility] Dermatopathology Laboratory performed the technical component only. [...] characteristic determined by the Dermatopathology Laboratory at [facility], directed by Dr. Vera Degroot. These [...] PATHOLOGY/CYTOLOGY OR DERABLES Final Result DERMATOPATHOLOGY LABORATORY [facility] - Department of Dermatology [address] [place] [address], 5th Floor Lab [address] [phone] documented in this encounter Visit Diagnoses Not on filedocumented in this encounter Care Teams Nursing Informatics Analyst Relationship Specialty Start Date End Date Alice Vasquez MD [address] [address] PCP - General 03/16/22 11/09/22 PcpArmando Depauramesh - PCP - General 11/10/22 documented as of this encounter
--- OUTSIDE RECORDS SUMMARY | 2025-03-17 10:27 | XMS_ITS | Encounter Summary ---
Author Organization [facility] Address [address] [place] [address] Care Team Providers Care District Loss Prevention Manager Name Role Phone Alice Vasquez MD Primary Care Provider [phone] [facility], [facility] [place] - Primary Care Provider Un available Encounter Details Date Type Department Care Team (Late st Contact Info) Description 11/27/2019 Lab Requisition [facility] Care DermPath Lab [address] [facility] [place] [address] Zeynep Moran MD [address] [facility] 3 [place] [address] Social History Tobacco Use Types Packs/Day Years [...] AM CDT) Case Report Dermatopathology Report Case: [id number] Authorizing Provider: Zeynep Moran MD Collected: 11/26/2019 12:00 AM Ordering Location: [facility] Care DermPath Lab Received: 11/27/2019 [...] specimen consists of a shave biopsy measuring 5g9y6tk, bisected. Jar 0. 0 12:28 PM CDT [...] characteristic determined by the Dermatopathology Laboratory at [facility], directed by Dr. Vera Degroot. These tests need not be, and therefore are not, approved by the [place] Food and Drug Administration. The tests are used for clinical purposes. Billing Codes Specimen Charges Stain Charges 84466 1 0 12:28 PM CDT DERMATOPATHOLOGY LABORATORY Embedded Images 0 12:28 PM CDT DERMATOPATHOLOGY LABORATORY Pathology/Cytolog y TISSUE SPECIMEN FROM SKIN / Unknown 11/26/2019 11/27/2019 2:14 PM CDT us Zeynep Moran MD LAB - PATHOLOGY/CYTOLOGY OR DERABLES Final Result DERMATOPATHOLOGY LABORATORY [facility] - Department of Dermatology [facility] [place] [address], [facility] [phone] documented in this encounter Visit Diagnoses Not on filedocumented in this encounter Care Teams District Loss Prevention Manager Relationship Specialty Start Date End Date Alice Vasquez MD [address] [facility] [address] [place] [address] PCP - General 03/16/22 11/09/22 PcpArmando Depauramesh - PCP - General 11/10/22 documented as of this encounter
== END 2025-03-17 09:45 | disposition home or self-care (01) ==
PROVIDERS: PCP Family Medicine; Visit Provider Internal Medicine Cardiovascular Disease
DX: R07.9 Chest pain, unspecified (principal)
CPT/HCPCS: 93017